=== PATIENT | male | born 1975 | race Caucasian/White ===

== ENCOUNTER 2021-07-24 13:02 | Outpatient (CLI) | payer BC, SELFPAY ==
--- NOTE | ~2021-07-24 | CT_ITS ---
EXAMINATION: CT abdomen pelvis wo con DATE: 07/24/2021 13:21 INDICATION: Kidney stone TECHNIQUE: Computed tomography (CT) of the abdomen and pelvis was performed without intravenous contr ast. Automated exposure control and iterative reconstruction technique were employed. Exam dose: 384 .38 mGy-cm total exam DLP. COMPARISON: None. FINDINGS: The lung bases are clear of infiltrate or consolidation. Normal heart size. No pericardial or pleural effusion. The liver, gallbladder, bile ducts are unremarkable. Splenic size is within normal limits. No pancrea tic mass lesion, calcification or ductal dilatation. The gallbladder is contracted. No bile duct dilatation. Normal morphology of the adrenal glands. No right renal mass lesion or right urinary tract calculus or hydroureteronephrosis. Approximately 10 x 13 cm left renal probable cyst; sonographic or contrast CT or MR confirmation is r ecommended. No other renal mass lesion is evident on this limited noncontrast examination. No urinary tract calcu umair or hydroureteronephrosis. Normal caliber of the abdominal aorta. No intraperitoneal or retroperitoneal or pelvic mass lesion or adenopathy or ascites. There is mild prostate enlargement and multiple prostate calcifications. Normal appendix. There is minimal colonic diverticulosis; no evidence of diverticulitis. No bowel obs truction or intraperitoneal free air is detected. No suspicious osteolytic or osteoblastic lesions. IMPRESSION: 10 x 13 cm cystic lesion of left kidney; this is a limited noncontrast examination. Cons ider further evaluation with left kidney ultrasound or CT with IV contrast or MRI examination to excl ude any possible cystic hypernephroma Small sliding hiatal hernia Normal appendix Minimal sigmoid diverticulosis Reviewed, dictated and finalized at [facility]. Reviewed, dictated and finalized at [facility]. IMPRESSION: 10 x 13 cm cystic lesion of left kidney; this is a limited noncont rast examination. Consider further evaluation with left kidney ultrasound or CT with IV contrast or MRI examination to exclude any possible cystic hypernephro ma Small sliding hiatal hernia Normal appendix Minimal sigmoid diverticulosis
== END 2021-07-24 13:03 | disposition home or self-care (01) ==
PROVIDERS: PCP Family Medicine; Visit Provider Urology
DX: N20.0 Calculus of kidney (principal); K44.9 Diaphragmatic hernia without obstruction or gangrene; N28.89 Other specified disorders of kidney and ureter
CPT/HCPCS: 74176

== ENCOUNTER 2021-11-26 13:29 | Outpatient (CLI) | payer BC, SELFPAY ==
--- NOTE | ~2021-11-26 | CT_ITS ---
EXAMINATION: CT abdomen pelvis wo con DATE: 11/26/2021 14:31 INDICATION: Nephrolithiasis, perinephric hematoma TECHNIQUE: Computed tomography (CT) of the abdomen and pelvis was performed without intravenous contr ast. The dose-length product (DLP) was 467.85 mGy-cm. Automated exposure control and iterative recons truction technique were employed. COMPARISON: 07/24/2021 FINDINGS: Minimal dependent atelectasis is present in the lung bases. The heart size is normal. The l iver, spleen, pancreas, gallbladder, and adrenal glands are normal. The right kidney is unremarkable. There is a stable 12.0 x 9.9 cm heterogeneous, cystic, subcapsular mass of the left kidney which exe rts mass effect on the left kidney. No stones are identified in the kidneys, ureters, or bladder. The re is no hydronephrosis or hydroureter. No pathologically enlarged abdominal or pelvic lymph nodes ar e identified. There is no free intraperitoneal gas or evidence of bowel obstruction. There is minimal diverticulosis of the sigmoid colon. There is a small area of edematous stranding of the perisigmoid fat adjacent to a diverticula. There is mild lumbar spondylosis. IMPRESSION: 1. Persistent mildly complex subcapsular mass of the left kidney, possible subcapsular hematoma. Woul d correlate with any available prior imaging. If none available, recommend MRI or CT without and with contrast or ultrasound. 2. Mild uncomplicated sigmoid diverticulitis. Reviewed, dictated and finalized at [facility]. IMPRESSION: 1. Persistent mildly complex subcapsular mass of the left kidney, possible subc apsular hematoma. Would correlate with any available prior imaging. If none gianna ilable, recommend MRI or CT without and with contrast or ultrasound. 2. Mild uncomplicated sigmoid diverticulitis.
== END 2021-11-26 13:30 | disposition home or self-care (01) ==
PROVIDERS: PCP Family Medicine; Visit Provider Urology
DX: N20.0 Calculus of kidney (principal); K57.30 Diverticulosis of large intestine without perforation or abscess without bleeding
CPT/HCPCS: 74176

== ENCOUNTER 2022-11-11 10:42 | Outpatient (CLI) | payer BC, SELFPAY ==
--- NOTE | ~2022-11-11 | US_ITS ---
EXAMINATION: US renal BI DATE: 11/11/2022 12:04 INDICATION: Stage III chronic kidney disease TECHNIQUE: Multiple ultrasound grayscale images of the kidneys were obtained. COMPARISON: None. FINDINGS: The right kidney measures 10.1 x 6.3 x 7.1 cm. The left kidney measures 10.5 x 4.2 x 5.1 cm. The kidn eys demonstrate normal echogenicity. There is a 9.0 x 5.6 x 5.7 cm mass with heterogeneous echogenici ty arising from the upper pole of the left kidney. There is no definitive internal vascular flow on c olor Doppler. There is no hydronephrosis in either kidney. No stones identified. The bladder is norm al with bilateral ureteral jets visualized. IMPRESSION: 1. 9.0 cm heterogeneous mass arising from the upper pole of the left kidney which appears relatively solid concerning for renal cell carcinoma. Recommend further evaluation with pre and postcontrast MR I or CT. Dr. Cowart discussed these findings with Dr. Dean at 11:00 AM. Reviewed, dictated and finalized at [facility]. IMPRESSION: 1. 9.0 cm heterogeneous mass arising from the upper pole of the left kidney wh ich appears relatively solid concerning for renal cell carcinoma. Recommend fur ther evaluation with pre and postcontrast MRI or CT. Dr. Cowart discussed the se findings with Dr. Dean at 11:00 AM.
== END 2022-11-11 10:43 | disposition home or self-care (01) ==
PROVIDERS: PCP Family Medicine; Visit Provider Internal Medicine Nephrology
DX: I12.9 Hypertensive chronic kidney disease with stage 1 through stage 4 chronic kidney disease, or unspecified chronic kidney disease (principal); N18.31 Chronic kidney disease, stage 3a
CPT/HCPCS: 76775

== ENCOUNTER 2022-11-11 12:05 | Outpatient (CLI) | payer BC, SELFPAY ==
[2022-11-11 13:29] LABS: Albumin Level 4.5 g/dL (3.5-5.1); Anion Gap 6 mmol/L (8-16); Blood Urea Nitrogen 27 mg/dL (9-20); Calcium 8.9 mg/dL (8.4-10.2); Carbon Dioxide 27 mmol/L (22-30); Chloride 104 mmol/L (98-107); Estimated Glomerular Filt Rate 47; Glucose 87 mg/dL (65-110); Phosphorus 3.4 mg/dL (2.5-4.5); Potassium 4.2 mmol/L (3.4-5.0); Sodium 137 mmol/L (137-145)
[2022-11-11 13:34] LABS: Creatinine Urine 14.3 mg/dL; Total Protein Urine Random 14 mg/dL; Ur Ttl Prot Creatinine Ratio 0.98 mg/mg (0-0.20)
[2022-11-11 13:41] LABS: Complement C3 89 mg/dL (88-165)
[2022-11-14 22:49] LABS: Albumin 4.3 g/dL (3.8-4.8); Alpha 1 Globulin 0.3 g/dL (0.2-0.3); Alpha 2 Globulin 0.7 g/dL (0.5-0.9); Beta 1 Globulin 0.4 g/dL (0.4-0.6); Gamma Globulin 0.6 g/dL (0.8-1.7); Interpretation Consistent with; Protein, Total 6.5 g/dL (6.1-8.1)
[2022-11-16 12:55] LABS: Anti Glomerular Basement Memb <1.0 AI (<1.0)
[2022-11-16 22:31] LABS: ANCA Screen Negative (Negative)
[2022-11-17 04:56] LABS: Anti Nuclear Antibody Pattern Nuclear, Speckled; Anti Nuclear Antibody Titer 1:40 (Negative)
[2022-11-17 14:16] LABS: Creatinine, Random Urine 17 mg/dL (20-320)
== END 2022-11-11 12:06 | disposition home or self-care (01) ==
PROVIDERS: PCP Family Medicine; Visit Provider Internal Medicine Nephrology
DX: I12.9 Hypertensive chronic kidney disease with stage 1 through stage 4 chronic kidney disease, or unspecified chronic kidney disease (principal); N18.31 Chronic kidney disease, stage 3a
CPT/HCPCS: 36415; 80069; 82570; 83520; 84155; 84156; 84165; 84166; 86036; 86038; 86039; 86160; 86225

== ENCOUNTER 2022-12-18 12:51 | Outpatient (CLI) | payer BC, SELFPAY ==
--- NOTE | ~2022-12-18 | MR_ITS ---
EXAMINATION: MR abdomen wo/w con DATE: 12/18/2022 13:48 INDICATION: Left renal mass TECHNIQUE: Magnetic resonance imaging (MRI) of the abdomen was performed without and with 19 mL Multi cristian intravenous contrast. Sequences included coronal T2-weighted SS-FSE, coronal and axial FS 2D-F IESTA, axial STIR FSE, axial T2-weighted SS-FSE, axial T2-weighted FS SS-FSE, axial diffusion-weighte d SE, axial dual-echo T1-weighted FSPGR, and axial and coronal T1-weighted LAVA. Postcontrast axial T 1-weighted LAVA images were obtained in a time course. Postcontrast coronal T1-weighted LAVA images w ere obtained. COMPARISON: Ultrasound dated 11/11/[address] dated 11/26/2021 FINDINGS: Heart size is normal. No pericardial or pleural effusion. Liver, gallbladder, spleen, pancreas, bilat eral adrenal glands and right kidney are normal. Mild to moderate left renal atrophy. Decrease in siz e of a now 7.6 x 4.7 x 6.2 cm subcapsular left perinephric hematoma along the lateral side of the kid rich which demonstrates heterogeneous T1 and T2 signal with no solid enhancing soft tissue component o r active hemorrhage on postcontrast imaging. This previously measured 13.7 x 10.9 x [address] date d 11/26/2021. The previously seen mass effect and distortion of the morphology of the left kidney has likely improved. The kidneys demonstrate symmetric enhancement with no evidence of secondary vascula r compromise to the left kidney resulting from the hematoma. Bowels are unremarkable. No pathological ly enlarged abdominal lymphadenopathy. Mild thoracic levocurvature and thoracolumbar dextrocurvature. Bone marrow signal is normal throughout. IMPRESSION: 1. Significant decrease in size of a now 7.6 x 4.7 x 6.2 cm chronic subcapsular left perinephric maryse ady. Reviewed, dictated and finalized at [facility]. RNED ITEM CLERK IMPRESSION: 1. Significant decrease in size of a now 7.6 x 4.7 x 6.2 cm chronic subcapsular left perinephric hematoma.
== END 2022-12-18 12:52 | disposition home or self-care (01) ==
PROVIDERS: PCP Family Medicine; Visit Provider Internal Medicine Nephrology
DX: N28.89 Other specified disorders of kidney and ureter (principal); N25.81 Secondary hyperparathyroidism of renal origin; E55.9 Vitamin D deficiency, unspecified; I12.9 Hypertensive chronic kidney disease with stage 1 through stage 4 chronic kidney disease, or unspecified chronic kidney disease; N18.31 Chronic kidney disease, stage 3a
CPT/HCPCS: 74183; A9577; J2704

== ENCOUNTER 2023-04-02 17:18 | Outpatient (CLI) | payer BC, SELFPAY ==
[2023-04-02 17:54] LABS: Albumin Level 4.4 g/dL (3.5-5.1); Anion Gap 9 mmol/L (8-16); Blood Urea Nitrogen 28 mg/dL (9-20); Calcium 8.9 mg/dL (8.4-10.2); Carbon Dioxide 26 mmol/L (22-30); Chloride 104 mmol/L (98-107); Estimated Glomerular Filt Rate 50; Glucose 96 mg/dL (65-110); Phosphorus 4.3 mg/dL (2.5-4.5); Potassium 3.8 mmol/L (3.4-5.0); Sodium 139 mmol/L (137-145)
[2023-04-02 18:10] LABS: Parathyroid Intact 65.7 pg/mL (7.5-53.5)
[2023-04-02 18:24] LABS: Creatinine Urine 72.9 mg/dL; Total Protein Urine Random 7 mg/dL
[2023-04-02 18:42] LABS: Vitamin D 25 Hydroxy 70.7 ng/mL
== END 2023-04-02 17:19 | disposition home or self-care (01) ==
LOC: ANHLAB 17:19
PROVIDERS: PCP Family Medicine; Visit Provider Internal Medicine Nephrology
DX: E55.9 Vitamin D deficiency, unspecified (principal); N25.81 Secondary hyperparathyroidism of renal origin; I12.9 Hypertensive chronic kidney disease with stage 1 through stage 4 chronic kidney disease, or unspecified chronic kidney disease; N18.31 Chronic kidney disease, stage 3a
CPT/HCPCS: 36415; 80069; 82306; 82570; 83970; 84156

== ENCOUNTER 2023-07-12 16:25 | Outpatient (CLI) | payer BC, SELFPAY ==
[2023-07-12 18:01] LABS: Albumin Level 4.4 g/dL (3.5-5.1); Anion Gap 6 mmol/L (4-12); Blood Urea Nitrogen 20 mg/dL (9-20); Calcium 8.9 mg/dL (8.4-10.2); Carbon Dioxide 27 mmol/L (22-30); Chloride 104 mmol/L (98-107); Estimated Glomerular Filt Rate 50; Glucose 91 mg/dL (65-110); Phosphorus 3.6 mg/dL (2.5-4.5); Sodium 137 mmol/L (137-145)
[2023-07-12 18:02] LABS: Creatinine Urine 32.3 mg/dL; Total Protein Urine Random 11 mg/dL; Ur Ttl Prot Creatinine Ratio 0.34 mg/mg (0-0.20)
== END 2023-07-12 16:26 | disposition home or self-care (01) ==
LOC: ANHLAB 16:26
PROVIDERS: PCP Family Medicine; Visit Provider Internal Medicine Nephrology
DX: I12.9 Hypertensive chronic kidney disease with stage 1 through stage 4 chronic kidney disease, or unspecified chronic kidney disease (principal); N18.31 Chronic kidney disease, stage 3a
CPT/HCPCS: 36415; 80069; 82570; 84156

== ENCOUNTER 2023-10-06 10:47 | Outpatient (CLI) | payer BC, SELFPAY ==
[2023-10-06 11:19] LABS: Add Urine Microscopic? NO; Appearance Urine Clear (Clear); Bilirubin Urine Negative (Negative); Blood Urine Negative (Negative); Color Urine Yellow (Yellow); Glucose Urine UA Negative (Negative); Ketones Urine Negative (Negative); Leukocyte Esterase Ur Negative LEU/UL (Negative); Nitrate Urine Negative (Negative); Protein Urine Negative (Negative); Urobilinogen Urine 0.2 mg/dL (<2.0); pH Urine 5.5 (5.0-9.0)
[2023-10-06 11:38] LABS: Alanine Aminotransferase 26 U/L (6-50); Albumin Level 4.3 g/dL (3.5-5.1); Alkaline Phosphatase 59 U/L (38-126); Anion Gap 10 mmol/L (4-12); Aspartate Amino Transferase 31 U/L (17-59); Bilirubin,Total 0.6 mg/dL (0.2-1.3); Blood Urea Nitrogen 24 mg/dL (9-20); Carbon Dioxide 27 mmol/L (22-30); Chloride 102 mmol/L (98-107); Cholesterol 149 mg/dL (0-200); Estimated Glomerular Filt Rate 46; Glucose 86 mg/dL (65-110); HDL Direct 41 mg/dL; Sodium 139 mmol/L (137-145); Triglycerides 117 mg/dL (<150)
[2023-10-06 11:39] LABS: Iron 104 ug/dL (49-181)
[2023-10-06 11:46] LABS: Basophils Absolute Auto 0.1 K/mm3 (0.0-0.1); Basophils Percent Auto 0.6 % (0.2-1.2); Eosinophils Absolute Auto 0.3 K/mm3 (0-0.3); Eosinophils Percent Auto 3.9 % (0-4.4); Hemoglobin 11.1 g/dL (14.0-18.0); Immature Granulocyte Absolute 0.02 K/mm3 (0.00-0.031); Immature Granulocyte Percent A 0.2 % (0-0.5); Lymphocytes Absolute Auto 1.91 K/mm3 (0.9-3.2); Lymphocytes Percent Auto 22.7 % (18.3-44.2); Mean Corpuscular Hemoglobin 19.2 pg (26-34); Mean Corpuscular Volume 64.1 fl (80-100); Mean Platelet Volume 9.2 fl (7.4-10.4); Monocytes Absolute Auto 0.6 K/mm3 (0.1-0.6); Monocytes Percent Auto 6.5 % (2.6-8.5); Neutrophils Absolute Auto 5.6 K/mm3 (1.3-6.7); Neutrophils Percent Auto 66.1 % (45.5-73.1); Platelet Count Result 519 k/mm3 (150-375); Red Blood Count 5.77 M/mm3 (4.6-6.20); White Blood Count 8.4 K/mm3 (4.5-10.0)
[2023-10-06 11:49] LABS: LDL Cholesterol Direct 78 mg/dL
[2023-10-06 11:56] LABS: Percent Iron Saturation 31 % (20-50)
[2023-10-06 12:07] LABS: Anisocytosis 1+; Hypochromasia 1+; Microcytosis 1+ (NORMAL); Ovalocytes 1+; Platelet Estimate Increased (Adequate); Schistocytes None Seen; Tear Drop Cells 1+
[2023-10-06 12:08] LABS: Prostate Specific Antigen 0.6 ng/mL (< OR = 4.0)
== END 2023-10-06 10:48 | disposition home or self-care (01) ==
LOC: ANHLAB 10:49
PROVIDERS: PCP Family Medicine; Visit Provider Family Medicine
DX: D56.3 Thalassemia minor (principal); I10 Essential (primary) hypertension; E78.2 Mixed hyperlipidemia; Z12.5 Encounter for screening for malignant neoplasm of prostate
CPT/HCPCS: 36415; 80053; 80061; 81003; 82728; 83540; 83550; 84153; 84443; 85025; G0103

== ENCOUNTER 2023-11-08 11:31 | Outpatient (CLI) | payer BC, SELFPAY ==
[2023-11-08 12:03] LABS: Albumin Level 4.3 g/dL (3.5-5.1); Anion Gap 9 mmol/L (4-12); Blood Urea Nitrogen 21 mg/dL (9-20); Calcium 9.2 mg/dL (8.4-10.2); Carbon Dioxide 25 mmol/L (22-30); Chloride 102 mmol/L (98-107); Estimated Glomerular Filt Rate 54; Glucose 89 mg/dL (65-110); Phosphorus 3.1 mg/dL (2.5-4.5); Potassium 4.2 mmol/L (3.4-5.0); Sodium 136 mmol/L (137-145)
[2023-11-08 12:03] LABS: Creatinine Urine 43.6 mg/dL; Total Protein Urine Random 8 mg/dL; Ur Ttl Prot Creatinine Ratio 0.18 mg/mg (0-0.20)
[2023-11-08 12:14] LABS: Parathyroid Intact 30.3 pg/mL (14.5-75.2)
[2023-11-08 12:32] LABS: Vitamin D 25 Hydroxy 68.2 ng/mL
[2023-11-12 18:59] LABS: Testosterone Free 57.5 pg/mL (35.0-155.0); Testosterone Total 395 ng/dL (250-1100)
== END 2023-11-08 11:32 | disposition home or self-care (01) ==
PROVIDERS: PCP Family Medicine; Referring Provider Family Medicine; Visit Provider Internal Medicine Nephrology
DX: E55.9 Vitamin D deficiency, unspecified (principal); E66.9 Obesity, unspecified; I12.9 Hypertensive chronic kidney disease with stage 1 through stage 4 chronic kidney disease, or unspecified chronic kidney disease; N18.31 Chronic kidney disease, stage 3a; N25.81 Secondary hyperparathyroidism of renal origin
CPT/HCPCS: 36415; 80069; 82306; 82570; 83970; 84156; 84402; 84403

== ENCOUNTER 2024-02-01 00:19 | Day surgery (SDC) | payer BC, SELFPAY ==
[2024-01-21 08:34] VITALS: BMI 35.4
--- NOTE | 2024-02-01 07:37 | P.PNAN_ITS ---
Anes - Initial Pre Proc Eval Procedure: Operation Date: 02/01/24 10:30 Proposed Procedures p Screening Colonoscopy - Per De La Garza MD Date/Time: 02/01/24 07:37 Surgeon: Per De La Garza MD Pre Op Diagnosis: screening malignant neoplasm colon Patient Data Age: 48 Gender: M Height: 1.75 m Weight: 108.9 kg Allergies Allergy/AdvReac Type Severity Reaction Status Date / Time No Known Allergies Allergy Verified 02/01/24 09:22 Home Medications ?Medication ?Instructions ?Recorded ?Confirmed ?Type irbesartan 300 mg tablet 300 mg PO DAILY #30 tabs 09/29/23 02/01/24 Rx Patient hx anesthesia problems: none Family hx anesthesia problems: none Results Review: All pre-operative results and documents have been reviewed as part of the pre- operative evaluation. ON LICENSE OF [facility] Past Medical History Medical History (Updated 11/13/23 @ 14:18 by Ignacio Lew MD) Colon cancer screening BMI 36.0-36.9,adult Acute non-recurrent maxillary sinusitis BMI 33.0-33.9,adult Renal mass, left (11/11/22) 9 cm heterogeneous mass upper pole of the left kidney on ultrasound on 11/11/2022. renal MRI on 12/18/2022 revealed no suspicious lesions with a resolving chronic subcapsular perinephric hematoma on the left currently at 7.6 x 4.7 x 6.2 cm. Renal insufficiency (~07/01/21) BUN 18, creatinine 1.45 with GFR 57 on 07/01/2021. BUN 23, creatinine 1.58 with GFR 54 on 09/01/2022. BMI 35.0-35.9,adult Obesity (BMI 30-39.9) Paresthesias in left hand Kidney stone on left side Treated with lithotripsy with subsequent subcapsular hematoma BMI 34.0-34.9,adult History of kidney stones Thalassemia minor WBC 9.1, hemoglobin 10.4, hematocrit 35.1, platelets 589 with MCV 60.4 With iron 58, 20% saturation, ferritin 151 on 07/01/2021. WBC 8.3, hemoglobin 11.9, hematocrit 40.5, platelets 722, MCV 64.9, iron 103 on 02/20/2017. Hemoglobin 11.1, platelets 515, MCV 64.1, iron 104 with 31% saturation and ferritin 81.1 on 10/06/2023. Pharyngitis (~02/11/21) Obesity (BMI 35.0-39.9 without comorbidity) Leukocytosis WBC normal at 8.4 on 10/06/2023. Essential (primary) hypertension Seasonal allergic rhinitis Fungal infection of toenail Encounter for prostate cancer screening PSA normal at 0.46 on 07/01/2021. PSA 0.6 on 10/06/2023. Encounter for wellness examination in adult Total testosterone 395 with free testosterone 57.5 on 11/08/2023. Surgical History Surgical History H/O shoulder surgery (~2016) History of tonsillectomy (~1991) Family History Family History Grandparent CHF (congestive heart failure) Grandparent Lung cancer Social History Social History Smoking status: Never smoker Alcohol intake: current Alcohol use details: Rarely beer Substance use: never Substance use type: does not use Do You Feel Safe in your Home?: Yes Lack of Transportation: No Lack of Food: Never True Current Housing: I Have Housing Concerned About Future Housing: No Difficulty Paying Gas/Electric Bills: No Difficulty Paying for Meds: No Currently Unemployed: No Education: Associate Degree Difficulty w/ Childcare or Family Care: No Living arrangements: with family Gender identity (if verbalized by the patient): Male Sexual Orientation (if Verbalized by the Patient): Straight or Heterosexual Spiritual care concerns: No Anes - Eval Final PreProcedure Day of Procedure 02/01/24 07:37 Patient weight: obese Heart: regular rate and rhythm Lungs: clear to auscultation Airway: Mallampati scale class II Neurological: alert and oriented Last oral intake: >/= 8 hours ASA classification: III Emergent: no Anesthetic plan: proceed Anesthesia type and monitoring: general GIVS and standard monitoring Results Review: All pre-operative results and documents have been reviewed as part of the pre- operative evaluation. Informed Consent: The patient's anesthetic plan and its attendant risks and benefits were discussed with the patient/family/POA. Questions were solicited and answers provided to the satisfaction of the patient/family/POA.
[2024-02-01 09:26] VITALS: BP 133/97; PULSE 80; RESP 18; TEMP 36.1; O2SAT 98
[2024-02-01] MEDS: LACTATED RINGERS 1,000 ML 150 ML IV CONT (09:33)
--- NOTE | 2024-02-01 09:49 | PM.HPGS ---
History of Present Illness History of Present Illness Consent: Risks, benefits, and alternatives have been discussed and questions answered. Patient agrees to proceed with procedure. Chief complaint: screening malignant neoplasm colon Narrative: João Marinelli is a 48 year old male here for first screening colonoscopy Review of Systems Review of Systems: All systems reviewed & are unremarkable except as noted in HPI and below PMFSH Past Medical History Medical History (Updated 11/13/23 @ 14:18 by Ignacio Lew MD) Colon cancer screening BMI 36.0-36.9,adult Acute non-recurrent maxillary sinusitis BMI 33.0-33.9,adult Renal mass, left (11/11/22) 9 cm heterogeneous mass upper pole of the left kidney on ultrasound on 11/11/2022. renal MRI on 12/18/2022 revealed no suspicious lesions with a resolving chronic subcapsular perinephric hematoma on the left currently at 7.6 x 4.7 x 6.2 cm. Renal insufficiency (~07/01/21) BUN 18, creatinine 1.45 with GFR 57 on 07/01/2021. BUN 23, creatinine 1.58 with GFR 54 on 09/01/2022. BMI 35.0-35.9,adult Obesity (BMI 30-39.9) Paresthesias in left hand Kidney stone on left side Treated with lithotripsy with subsequent subcapsular hematoma BMI 34.0-34.9,adult History of kidney stones Thalassemia minor WBC 9.1, hemoglobin 10.4, hematocrit 35.1, platelets 589 with MCV 60.4 With iron 58, 20% saturation, ferritin 151 on 07/01/2021. WBC 8.3, hemoglobin 11.9, hematocrit 40.5, platelets 722, MCV 64.9, iron 103 on 02/20/2017. Hemoglobin 11.1, platelets 515, MCV 64.1, iron 104 with 31% saturation and ferritin 81.1 on 10/06/2023. Pharyngitis (~02/11/21) Obesity (BMI 35.0-39.9 without comorbidity) Leukocytosis WBC normal at 8.4 on 10/06/2023. Essential (primary) hypertension Seasonal allergic rhinitis Fungal infection of toenail Encounter for prostate cancer screening PSA normal at 0.46 on 07/01/2021. PSA 0.6 on 10/06/2023. Encounter for wellness examination in adult Total testosterone 395 with free testosterone 57.5 on 11/08/2023. Surgical History Surgical History H/O shoulder surgery (~2016) History of tonsillectomy (~1991) Family History Family History Grandparent CHF (congestive heart failure) Grandparent Lung cancer Social History Social History Smoking status: Never smoker Alcohol intake: current Alcohol use details: Rarely beer Substance use: never Substance use type: does not use Do You Feel Safe in your Home?: Yes Lack of Transportation: No Lack of Food: Never True Current Housing: I Have Housing Concerned About Future Housing: No Difficulty Paying Gas/Electric Bills: No Difficulty Paying for Meds: No Currently Unemployed: No Education: Associate Degree Difficulty w/ Childcare or Family Care: No Living arrangements: with family Gender identity (if verbalized by the patient): Male Sexual Orientation (if Verbalized by the Patient): Straight or Heterosexual Spiritual care concerns: No Meds Home Medications and Allergies Home Medications ?Medication ?Instructions ?Recorded ?Confirmed ?Type irbesartan 300 mg tablet 300 mg PO DAILY #30 tabs 09/29/23 02/01/24 Rx Allergies Allergy/AdvReac Type Severity Reaction Status Date / Time No Known Allergies Allergy Verified 02/01/24 09:22 Vital Signs Vital Signs - 24 hr 02/01/24 09:26 Temperature 97 F L Pulse Rate 80 Respiratory Rate 18 Blood Pressure 133/97 H Pulse Oximetry 98 Oxygen Delivery Room Air Exam Const: General: comfortable and no acute distress HENMT: Face/Nose/Sinus: Normal nares present Eyes: General: appearance normal, both eyes and all related structures Neck: Neck: no JVD Resp: Auscultation: clear to auscultation bilaterally Cardio: Rate: regular rate Rhythm: regular rhythm GI: Inspection: non-distended GI Palp: Yes Soft to palpation Skin: General skin exam: normal color Neuro: General: gait normal Speech: normal speech Extrem: General: normal to inspection Psych: Mental Status: mental status grossly normal Assessment and Plan Assessment and plan (1) Colon cancer screening: Code(s): Z12.11 - Encounter for screening for malignant neoplasm of colon Status: Acute Assessment and Plan: colonoscopy
[2024-02-01 10:00] VITALS: BP 116/63; PULSE 66; RESP 20; O2SAT 97
[2024-02-01 10:10] VITALS: BP 117/61; PULSE 67; RESP 21; O2SAT 100
[2024-02-01 10:20] VITALS: BP 108/70; PULSE 61; RESP 19; O2SAT 100
--- OUTSIDE RECORDS SUMMARY | 2024-02-08 02:11 | XMS_ITS | Encounter Summary ---
Author Organization [facility] Address [address] [address] Care Team Providers Care Applied Technologist Name Role Phone Ignacio Lew MD Primary Care Provider [phone] Nino Lazaro MD Unavailable [phone] Reason for Visit * Reason Comments COVID-19 EVALUATION x3 days, fatigue, so re throat, altered taste and smell, body aches, chills. Encounter Details Date Type Department Care Team (Late st Contact Info) Description 02/17/2021 6:15 PM PAYROLL MASTER Office Visit [facility] [address] [address] Drake Gee, DONY [address] [place] [address] [address] [place] [address] COVID-19 (Primary Dx); Elevated blood pressure reading without diagnosis of hypertension Social History Tobacco Use Types Packs/Day Years Used Date Smoking Tobacco: Never Smokeless Tobacco: Never Sex and Gender Information Value Date Recorded Sex Assigned at Not on file Legal Sex Male 6:30 AM PAYROLL MASTER Gender Identity Male 07/28/2017 7:38 AM CDT Sexual Orientation Not on file documented as of this encounter Last Filed Vital Signs Vital Sign Reading Time Taken Comments Blood Pressure 133/99 02/17/2021 6:18 PM PAYROLL MASTER Pulse 93 02/17/2021 6:18 PM PAYROLL MASTER Temperature 36.6 ??C (97.9 ??F) 02/17/2021 6:18 PM CS T Respiratory Rate 16 02/17/2021 6:18 PM PAYROLL MASTER Oxygen Saturation 99% 02/17/2021 6:18 PM PAYROLL MASTER Inhaled Oxygen Concentration - - Weight 113.4 kg (250 lb) 02/17/2021 6:18 PM PAYROLL MASTER Height 175.3 cm (5' 9 ) 02/17/2021 6:18 PM PAYROLL MASTER Body Mass Index 36.92 02/17/2021 6:18 PM PAYROLL MASTER documented in this encounter Patient Instructions * Patient Instructions* Justyna Wei MA - 02/17/2021 6:15 PM PAYROLL MASTER Results for orders placed or performed in visit on 02/17/21 POC Influenza A/B, COVID-19 antigen Result Value Ref Range Inflenza A Ag, POC Negative Influenza B Ag, POC Negative COVID-19 Ag POC Positive (A) Presumptive Negative, Invalid While waiting for your COVID-19 test result or if your COVID-19 test is positive: ISOLATE: Stay home except to get medical care! Separate yourself from other people and pets in [facility]: ??? Do not go to work, school, or public areas, such as stores or social gatherings. ??? Do not use public transportation. ??? If available, stay in a separate bedroom and use a separate bathroom. ??? Ask others to care for your pets. (If possible) ??? Wear a facemask when around other people or pets. ??? Cover your mouth and nose with a tissue when you cough or sneeze. If a tissue is not available,cough or sneeze into your upper sleeve (not your hands). ??? Throw tissues away in trash-can that has a bag in it. Empty your trash daily. ??? Always wash your hands after you throw away the tissue or garbage. If you test Positive for COVID-19 Given what we currently know about COVID-19 and the Omicron variant, [facility] is shortening the recommended time for isolation from 10 days for people with COVID-19 to 5 days, if asymptomatic, followed by5 days of wearing a mask when around others. The change is motivated by science demonstrating that the majority of SARS-CoV-2 transmission occurs early in the course of illness, generally in the 1-2 days prior to onset of symptoms and the 2-3 days after. Therefore, people who test positive should isolate for 5 days and, if asymptomatic at that time, they may leave isolation if they can continue to mask for 5 days to minimize the risk of infecting others. Quarantine for those exposed to COVID-19 Additionally, [facility] is updating the recommended quarantine period for those exposed to COVID-19. For people who are unvaccinated or are more than six months out from their second mRNA dose (or more than 2 months after the J&J vaccine) and not yet boosted, CDC now recommends quarantine for 5 days followed by strict mask use for an additional 5 days. Alternatively, if a 5-day quarantine is not feasible, it is imperative that an exposed person wear a well-fitting mask at all times when around others for 10 days after exposure. Individuals who have received their booster shot do not need to quarantine following an exposure, but should wear a mask for 10 days after the exposure. For all those exposed, best practice would also include a test for SARS-CoV-2 at day 5 after exposure. If symptomsoccur, individuals should immediately quarantine until a negative test confirms symptoms are not attributable to COVID-19. Isolation relates to behavior after a confirmed infection. Isolation for 5 days followed by wearinga well-fitting mask will minimize the risk of spreading the virus to others. Quarantine refers to the time following exposure to the virus or close contact with someone known to have COVID-19. Both updates come as the Omicron variant continues to spread throughout the [place] and reflects the current science on when and for how long a person is maximally infectious. If You Were Exposed to Someone with COVID-19 (Quarantine) If you: Have been boosted OR Completed the primary series of Pfizer or Moderna vaccine within the last 6 months OR Completed the primary series of J&J vaccine within the last 2 months Wear a mask around others for 10 days. Test on day 5, if possible. If you develop symptoms get a test and stay home. If you: Completed the primary series of Pfizer or Moderna vaccine over 6 months ago and are not boosted OR Completed the primary series of J&J over 2 months ago and are not boosted OR Are unvaccinated Stay home for 5 days. After that continue to wear a mask around others for 5 additional days. If you can???t quarantine you must wear a mask for 10 days. Test on day 5 if possible. If you develop symptoms get a test and stay home If You Test Positive for COVID-19 (Isolate) Everyone, regardless of vaccination status. Stay home for 5 days. If you have no symptoms or your symptoms are resolving after 5 days, you can leave your house. Continue to wear a mask around others for 5 additional days. If you have a fever, continue to stay home until your fever resolves. Self-care: ??? Rest as much as possible. Slowly start to do more each day. ??? Take the medicines recommended by your doctor for fever, body aches, cough, or headaches. (Tylenol or Ibuprofen for aches/pains/fever as needed) (Antihistamines like Claritin or Benadryl as needed for drainage) (Delsym and cough drops/throat lozenges as needed for cough) ??? Drink more liquids as directed to help thin and loosen mucus so it is easier to cough up. Liquids such as water, fruit juice, and broth also help keep you hydrated. ??? Soothe a sore throat by gargling with warm salt water. Make salt water by dissolving ?? teaspoon salt in 1 cup warm water (8 ounces). Older children and adults can also use throat lozenges, ice chips, or sore throat spray. ??? Use a humidifier or vaporizer to increase air moisture in your home. This may make it easier tobreathe and help decrease coughing. ??? Use saline nasal drops as directed to relieve congestion. ??? Apply petroleum-based jelly around the outside of nostrils to decrease irritation from blowing your nose. ??? DO NOT smoke or vape. Nicotine and other chemicals in cigarettes and cigars can make your symptoms worse. Monitor your symptoms: ??? Seek medical attention right away if your symptoms get worse, such as if you are having difficulty breathing, shortness of breath, new confusion or inability to arouse, or bluish lips or face. ??? If you have a pulse ox monitor at home, monitor your oxygen saturations with this device. If you find your Oxygen Saturation is falling 92% or below please notify your PCP right away or seek medical attention. Or if you experience fever uncontrolled with antipyretics, shortness of breath, chestdiscomfort, uncontrolled n/v/d ??? If you have a medical emergency, call 911 and notify the EMS personnel that you have or are being evaluated for COVID-19. Put on a facemask before emergency medical services arrive -briefly discussed monoclonal antibody therapy, if you meet criteria, call your PCP for more information OLL MASTER OLL MASTER documented in this encounter Progress Notes * Drake Gee NP - 02/17/2021 6:15 PM CST Images from the original note were not included. Subjective/Objective Patient ID: João Marinelli is a 45 y.o. male. Chief Complaint COVID-19 EVALUATION (x3 days, fatigue, sore throat, altered taste and smell, body aches, chills.) URI Episode onset: 02/13/21. Associated symptoms include rhinorrhea and a sore throat. Pertinent negatives include no abdominal pain, chest pain, congestion, coughing, diarrhea, ear pain, headaches, nausea, neck pain, rash, shortness of breath, sinus pain, sneezing, vomiting or wheezing. Treatments tried: sudafed, mucinex. The treatment provided moderate relief. Review of Systems Constitutional: Positive for chills and fatigue. Negative for appetite change, diaphoresis and fever (99F max). HENT: Positive for rhinorrhea and sore throat. Negative for congestion, ear discharge, ear pain, postnasal drip, sinus pressure, sinus pain and sneezing. altered taste and smell Respiratory: Negative for cough, chest tightness, shortness of breath and wheezing. Cardiovascular: Negative for chest pain. Gastrointestinal: Negative for abdominal pain, diarrhea, nausea and vomiting. Musculoskeletal: Positive for myalgias. Negative for neck pain and neck stiffness. Skin: Negative for rash. Neurological: Negative for dizziness and headaches. Hematological: Negative for adenopathy. Physical Exam Vitals and nursing note reviewed. Exam conducted with a head of science present (pt's daughter, who is also being seen today). Constitutional: General: He is awake. He is not in acute distress. Appearance: Normal appearance. HENT: Head: Normocephalic and atraumatic. Right Ear: Tympanic membrane and ear canal normal. Left Ear: Tympanic membrane and ear canal normal. Nose: No congestion or rhinorrhea. Right Sinus: No maxillary sinus tenderness or frontal sinus tenderness. Left Sinus: No maxillary sinus tenderness or frontal sinus tenderness. Mouth/Throat: Lips: [place]. Mouth: Mucous membranes are moist. Tongue: Tongue does not deviate from midline. Pharynx: Uvula midline. Posterior oropharyngeal erythema present. No pharyngeal swelling, oropharyngeal exudate or uvula swelling. Tonsils: No tonsillar exudate or tonsillar abscesses. Eyes: General: Lids are normal. Pupils: Pupils are equal, round, and reactive to light. Cardiovascular: Rate and Rhythm: Normal rate and regular rhythm. Pulses: Normal pulses. Heart sounds: Normal heart sounds. Pulmonary: Effort: Pulmonary effort is normal. No respiratory distress. Breath sounds: Normal breath sounds. No decreased breath sounds, wheezing, rhonchi or rales. Comments: No cough noted on exam Musculoskeletal: Cervical back: Full passive range of motion without pain, normal range of motion and neck supple. Lymphadenopathy: Cervical: No cervical adenopathy. Skin: General: Skin is warm and dry. Neurological: Mental Status: He is alert and oriented to person, place, and time. Gait: Gait normal. Psychiatric: Behavior: Behavior is cooperative. Vitals: 02/17/21 1818 BP: 133/99 BP Location: Right arm Patient Position: Sitting Pulse: 93 Resp: 16 Temp: 36.6 ??C (97.9 ??F) SpO2: 99% Weight: 113.4 kg (250 lb) Height: 175.3 cm (5' 9 ) No exam data present Past Medical History: Diagnosis Date ??? Thrombocytosis 07/31/2017 Social History Socioeconomic History ??? Marital status: Tobacco Use ??? Smoking status: Never Smoker ??? Smokeless tobacco: Never Used Substance and Sexual Activity ??? Sexual activity: Defer Assessment/Plan Diagnoses and all orders for this visit: COVID-19 (Primary) - POC Influenza A/B, COVID-19 antigen - POCT rapid strep A Elevated blood pressure reading without diagnosis of hypertension follow up with PCP Recent Results (from the past 4 hour(s)) POC Influenza A/B, COVID-19 antigen Collection Time: 02/17/21 6:43 PM Result Value Ref Range Inflenza A Ag, POC Negative Influenza B Ag, POC Negative COVID-19 Ag POC Positive (A) Presumptive Negative, Invalid POCT rapid strep A Collection Time: 02/17/21 6:45 PM Result Value Ref Range Rapid Strep A, POC Negative Patient Education: While waiting for your COVID-19 test result or if your COVID-19 test is positive: ISOLATE: Stay home except to get medical care! Separate yourself from other people and pets in yourhome: ??? Do not go to work, school, or public areas, such as stores or social gatherings. ??? Do not use public transportation. ??? If available, stay in a separate bedroom and use a separate bathroom. ??? Ask others to care for your pets. (If possible) ??? Wear a facemask when around other people or pets. ??? Cover your mouth and nose with a tissue when you cough or sneeze. If a tissue is not available,cough or sneeze into your upper sleeve (not your hands). ??? Throw tissues away in trash-can that has a bag in it. Empty your trash daily. ??? Always wash your hands after you throw away the tissue or garbage. If you test Positive for COVID-19 Given what we currently know about COVID-19 and the Omicron variant, [facility] is shortening the recommended time for isolation from 10 days for people with COVID-19 to 5 days, if asymptomatic, followed by5 days of wearing a mask when around others. The change is motivated by science demonstrating that the majority of SARS-CoV-2 transmission occurs early in the course of illness, generally in the 1-2 days prior to onset of symptoms and the 2-3 days after. Therefore, people who test positive should isolate for 5 days and, if asymptomatic at that time, they may leave isolation if they can continue to mask for 5 days to minimize the risk of infecting others. Quarantine for those exposed to COVID-19 Additionally, [facility] is updating the recommended quarantine period for those exposed to COVID-19. For people who are unvaccinated or are more than six months out from their second mRNA dose (or more than 2 months after the J&J vaccine) and not yet boosted, CDC now recommends quarantine for 5 days followed by strict mask use for an additional 5 days. Alternatively, if a 5-day quarantine is not feasible, it is imperative that an exposed person wear a well-fitting mask at all times when around others for 10 days after exposure. Individuals who have received their booster shot do not need to quarantine following an exposure, but should wear a mask for 10 days after the exposure. For all those exposed, best practice would also include a test for SARS-CoV-2 at day 5 after exposure. If symptomsoccur, individuals should immediately quarantine until a negative test confirms symptoms are not attributable to COVID-19. Isolation relates to behavior after a confirmed infection. Isolation for 5 days followed by wearinga well-fitting mask will minimize the risk of spreading the virus to others. Quarantine refers to the time following exposure to the virus or close contact with someone known to have COVID-19. Both updates come as the Omicron variant continues to spread throughout the [place] and reflects the current science on when and for how long a person is maximally infectious. If You Were Exposed to Someone with COVID-19 (Quarantine) If you: Have been boosted OR Completed the primary series of Pfizer or Moderna vaccine within the last 6 months OR Completed the primary series of J&J vaccine within the last 2 months Wear a mask around others for 10 days. Test on day 5, if possible. If you develop symptoms get a test and stay home. If you: Completed the primary series of Pfizer or Moderna vaccine over 6 months ago and are not boosted OR Completed the primary series of J&J over 2 months ago and are not boosted OR Are unvaccinated Stay home for 5 days. After that continue to wear a mask around others for 5 additional days. If you can???t quarantine you must wear a mask for 10 days. Test on day 5 if possible. If you develop symptoms get a test and stay home If You Test Positive for COVID-19 (Isolate) Everyone, regardless of vaccination status. Stay home for 5 days. If you have no symptoms or your symptoms are resolving after 5 days, you can leave your house. Continue to wear a mask around others for 5 additional days. If you have a fever, continue to stay home until your fever resolves. Self-care: ??? Rest as much as possible. Slowly start to do more each day. ??? Take the medicines recommended by your doctor for fever, body aches, cough, or headaches. (Tylenol or Ibuprofen for aches/pains/fever as needed) (Antihistamines like Claritin or Benadryl as needed for drainage) (Delsym and cough drops/throat lozenges as needed for cough) ??? Drink more liquids as directed to help thin and loosen mucus so it is easier to cough up. Liquids such as water, fruit juice, and broth also help keep you hydrated. ??? Soothe a sore throat by gargling with warm salt water. Make salt water by dissolving ?? teaspoon salt in 1 cup warm water (8 ounces). Older children and adults can also use throat lozenges, ice chips, or sore throat spray. ??? Use a humidifier or vaporizer to increase air moisture in your home. This may make it easier tobreathe and help decrease coughing. ??? Use saline nasal drops as directed to relieve congestion. ??? Apply petroleum-based jelly around the outside of nostrils to decrease irritation from blowing your nose. ??? DO NOT smoke or vape. Nicotine and other chemicals in cigarettes and cigars can make your symptoms worse. Monitor your symptoms: ??? Seek medical attention right away if your symptoms get worse, such as if you are having difficulty breathing, shortness of breath, new confusion or inability to arouse, or bluish lips or face. ??? If you have a pulse ox monitor at home, monitor your oxygen saturations with this device. If you find your Oxygen Saturation is falling 92% or below please notify your PCP right away or seek medical attention. Or if you experience fever uncontrolled with antipyretics, shortness of breath, chestdiscomfort, uncontrolled n/v/d ??? If you have a medical emergency, call 911 and notify the EMS personnel that you have or are being evaluated for COVID-19. Put on a facemask before emergency medical services arrive -briefly discussed monoclonal antibody therapy, if you meet criteria, call your PCP for more information Disposition ??? Treatment plan including expectations, follow up, and return precautions discussed with patient/parent, verbalizes understanding. ??? Medication dosage, use, and potential adverse reactions discussed with patient/parent. ??? Advised to follow up with PCP if symptoms do not resolve as expected or sooner if condition worsens. ??? Signs/symptoms warranting ER evaluation reviewed. ??? Patient and/or guardian was given an opportunity to ask questions, questions answered. Drake Gee NP OLL MASTER documented in this encounter Plan of Treatment Not on file documented as of this encounter Procedures Procedure Name Priority Date/Time Associated Diagnosis Comments POCT RAPID STREP Routine 02/17/2021 6:45 PM PAYROLL MASTER COVID-19 POC INFLUENZA A/B, COVID-19 ANTIGEN Routine 02/17/2021 6:43 PM PAYROLL MASTER COVID-19 documented in this encounter Results * POCT rapid strep A (02/17/2021 6:45 PM PAYROLL MASTER) Rapid Strep A, POC Negative Swab 02/17/2021 6:45 PM PAYROLL MASTER Drake Gee PICK UP POINT OF CARE TEST ORDERABLES F inal Result * (ABNORMAL) POC Influenza A/B, COVID-19 antigen (02/17/2021 6:43 PM PAYROLL MASTER) Pathologist [facility] Influenza A Ag, POC Negative [facility] Influenza B Ag, POC Negative [facility] COVID-19 Ag POC Positive(A) Presumptive Negative, Invalid [facility] 02/17/2021 6:43 PM PAYROLL MASTER Drake Gee NP POINT OF CARE TEST ORDERABLES F inal Result [facility] [address] [place] [address] documented in this encounter Visit Diagnoses Diagnosis COVID-19- Primary Elevated blood pressure reading without diagnosis of hypertension documented in this encounter Additional Health Concerns Infection Onset Date Last Indicated Resolved Time COVID: Suspected 02/17/2021 02/17/2021 02/17/2021 6:44 PM PAYROLL MASTER COVID19 02/17/2021 02/17/2021 02/27/2021 3:06 AM PAYROLL MASTER documented as of this encounter Care Teams Applied Technologist Relationship Specialty Start Date End Date Ignacio Lew MD [address] [address] PCP - General 04/21/17 Nino Lazaro MD [address] [address] Medical Oncologist/Rn Gynecology Hematology and Oncology 07/27/17 documented as of this encounter
--- OUTSIDE RECORDS SUMMARY | 2024-02-08 02:11 | XMS_ITS | Clinical Summary ---
Author Organization [facility] Address [address] [place] [address] Care Team Providers Care Development Editor Name Role Phone Ignacio Lew MD Primary Care Provider [phone] Nino Lazaro MD Unavailable [phone] Allergies No known active allergies Medications cefdinir (OMNICEF) 300 mg capsule 9 Active aspirin 81 mg enteric coated tablet TAKE ONE TABLET DAILY 30 tablet 11 9 Active Additional Information Patient not taking.Reported on 02/17/2021 Active Problems Problem Noted Date Diagnosed Date Thalassemia 04/20/2017 Thrombocytosis 03/08/2017 Immunizations Name Administration Dates Next Due Influenza, Unspecified 04/21/2017 Medical History Medical History Date Comments Thrombocytosis 07/31/2017 Social History Tobacco Use Types Packs/Day Years Used Date Smoking Tobacco: Never Smokeless Tobacco: Never Personal Safety Answer Date Recorded Getting School Help Needed Not on file 04/03 Sex and Gender Information Value Date Recorded Sex Assigned at Not on file Legal Sex Male 6:30 AM MERCHANDISE DISTRIBUTOR Gender Identity Male 07/28/2017 7:38 AM CDT Sexual Orientation Not on file Obstetrics History Last Filed Vital Signs Vital Sign Reading Time Taken Comments Blood Pressure 133/99 02/17/2021 6:18 PM MERCHANDISE DISTRIBUTOR Pulse 93 02/17/2021 6:18 PM MERCHANDISE DISTRIBUTOR Temperature 36.6 ??C (97.9 ??F) 02/17/2021 6:18 PM CS T Respiratory Rate 16 02/17/2021 6:18 PM MERCHANDISE DISTRIBUTOR Oxygen Saturation 99% 02/17/2021 6:18 PM MERCHANDISE DISTRIBUTOR Inhaled Oxygen Concentration - - Weight 113.4 kg (250 lb) 02/17/2021 6:18 PM MERCHANDISE DISTRIBUTOR Height 175.3 cm (5' 9 ) 02/17/2021 6:18 PM MERCHANDISE DISTRIBUTOR Body Mass Index 36.92 02/17/2021 6:18 PM MERCHANDISE DISTRIBUTOR Plan of Treatment Health Maintenance Due Date Last Done Comments Colon Cancer Screening-Colonoscopy 1974 Depression Screening 1974 Hepatitis C Screening 1974 Pneumococcal vaccine <65 (1 of 2 - PCV) 1980 DTaP/Tdap/Td Vaccine (1 - Tdap) 1985 Hepatitis B Screening 1992 Regular Well Visit/Exam 18-64 1992 Influenza Vaccine (#1) 2023 04/21/2017 Insurance [employer] [place] Care Teams Development Editor Relationship Specialty Start Date End Date Ignacio Lew MD [address] [address] PCP - General 04/21/17 Nino Lazaro MD [address] [address] Medical Oncologist/First Beater Hematology and Oncology 07/27/17
--- OUTSIDE RECORDS SUMMARY | 2024-02-08 02:11 | XMS_ITS | Encounter Summary ---
Author Organization [facility] Address [address] [place] [facility] [address] [place] [address] Care Team Providers Care Home Specialist Name Role Phone Ignacio Lew MD Primary Care Provider + -[phone] Nino Lazaro MD Unavailable [phone] Encounter Details Date Type Department Care Team (Late st Contact Info) Description 02/19/2021 Orders Only [facility] Accountable Care Organization [address] [place] [address] Justyna Lomax RN [address] [place] [address] [address] [facility] [address] [place] [address] Social History Tobacco Use Types Packs/Day Years Used Date Smoking Tobacco: Never Smokeless Tobacco: Never Sex and Gender Information Value Date Recorded Sex Assigned at Not on file Legal Sex Male 6:30 AM SOFTBALL UMPIRE Gender Identity Male 07/28/2017 7:38 AM CDT Sexual Orientation Not on file documented as of this encounter Plan of Treatment Not on file documented as of this encounter Visit Diagnoses Not on filedocumented in this encounter Additional Health Concerns Infection Onset Date Last Indicated Resolved Time COVID19 02/17/2021 02/17/2021 02/27/2021 3:06 AM SOFTBALL UMPIRE documented as of this encounter Care Teams Home Specialist Relationship Specialty Start Date End Date Ignacio Lew MD [address] [facility] [address] [place] [address] PCP - General 04/21/17 Nino Lazaro MD [address] [address] Medical Oncologist/Highway Engineering Technician Hematology and Oncology 07/27/17 documented as of this encounter
--- OUTSIDE RECORDS SUMMARY | 2024-02-08 02:11 | XMS_ITS | Referral Summary ---
Author Organization [facility] Address [address] [place] [address] Care Team Providers Care Electrician Marine Name Role Phone Ignacio Lew MD Primary Care Provider [phone] Nino Lazaro MD Unavailable [phone] Allergies No known active allergies Medications cefdinir (OMNICEF) 300 mg capsule 9 Active aspirin 81 mg enteric coated tablet TAKE ONE TABLET DAILY 30 tablet 11 9 Active Additional Information Patient not taking.Reported on 02/17/2021 Active Problems Problem Noted Date Diagnosed Date Thalassemia 04/20/2017 Thrombocytosis 03/08/2017 Immunizations Name Administration Dates Next Due Influenza, Unspecified 04/21/2017 Social History Tobacco Use Types Packs/Day Years Used Date Smoking Tobacco: Never Smokeless Tobacco: Never Personal Safety Answer Date Recorded Getting School Help Needed Not on file 04/03 Sex and Gender Information Value Date Recorded Sex Assigned at Not on file Legal Sex Male 6:30 AM CASEWORKER INTAKE Gender Identity Male 07/28/2017 7:38 AM CDT Sexual Orientation Not on file Last Filed Vital Signs Vital Sign Reading Time Taken Comments Blood Pressure 133/99 02/17/2021 6:18 PM CASEWORKER INTAKE Pulse 93 02/17/2021 6:18 PM CASEWORKER INTAKE Temperature 36.6 ??C (97.9 ??F) 02/17/2021 6:18 PM CS T Respiratory Rate 16 02/17/2021 6:18 PM CASEWORKER INTAKE Oxygen Saturation 99% 02/17/2021 6:18 PM CASEWORKER INTAKE Inhaled Oxygen Concentration - - Weight 113.4 kg (250 lb) 02/17/2021 6:18 PM CASEWORKER INTAKE Height 175.3 cm (5' 9 ) 02/17/2021 6:18 PM CASEWORKER INTAKE Body Mass Index 36.92 02/17/2021 6:18 PM CASEWORKER INTAKE Plan of Treatment Not on file Insurance [employer] [facility] [employer] [place] Care Teams Electrician Marine Relationship Specialty Start Date End Date Ignacio Lew MD [address] [address] PCP - General 04/21/17 Nino Lazaro MD [address] [employer] [address] Medical Oncologist/Grinder Set Up Operator Hematology and Oncology 07/27/17
--- OUTSIDE RECORDS SUMMARY | 2024-02-08 02:11 | XMS_ITS | Encounter Summary ---
Author Organization [facility] Address [address] [address] Care Team Providers Care Paint Preparer Name Role Phone Ignacio Lew MD Primary Care Provider [phone] Nino Lazaro MD Unavailable [phone] Reason for Visit * Reason Comments covid swab for event Encounter Details Date Type Department Care Team (Latest Contact Info) Description 01/13/2021 7:00 PM CAPTAIN FISHING VESSEL Clinical Support [facility] Outpatient Center [address] [id number] Encounter for screening for COVID-19 (Primary Dx) Social History Tobacco Use Types Packs/Day Years Used Date Smoking Tobacco: Never Smokeless Tobacco: Never Sex and Gender Information Value Date Recorded Sex Assigned at Not on file Legal Sex Male 6:30 AM CAPTAIN FISHING VESSEL Gender Identity Male 07/28/2017 7:38 AM CDT Sexual Orientation Not on file documented as of this encounter Progress Notes * Corrina Tim MA - 01/13/2021 7:00 PM CST Patient presents to clinic requesting COVID swab for event Denies the following: GI symptoms: nausea, vomiting, diarrhea, abdominal pain Respiratory symptoms: shortness of breath, chest discomfort, cough, rhinorrhea, congestion, sore throat Generalized symptoms of infection: fever, excessive fatigue, generalized malaise, headache, ear ache Verbalizes understanding that if symptoms develop, patient should return to clinic for further workup and/or treatment of symptoms. AIN FISHING VESSEL documented in this encounter Plan of Treatment Not on file documented as of this encounter Procedures Procedure Name Priority Date/Time Associated Diagnosis Comments COVID-19 POC Routine 01/13/2021 7:23 PM CAPTAIN FISHING VESSEL Encounter for screening for COVID-19 documented in this encounter Results * COVID-19 POC (01/13/2021 7:23 PM CAPTAIN FISHING VESSEL) COVID-19 Ag POC (BD Veritor) Presumptive Negative Presumptive Negative, Invalid [facility] Nasal 01/13/2021 7:23 PM CAPTAIN FISHING VESSEL Drake Gee CAUSTIC CRESYLATE SHIFT SUPERINTENDENT POINT OF CARE TEST ORDERABLES F inal Result [facility] EDW [facility] [address] documented in this encounter Visit Diagnoses Diagnosis Encounter for screening for COVID-19- Primary documented in this encounter Care Teams Paint Preparer Relationship Specialty Start Date End Date Ignacio Lew MD [address] [employer] [address] PCP - General 04/21/17 Nino Lazaro MD [address] [employer] [address] Medical Oncologist/Container Finishing Inspector Hematology and Oncology 07/27/17 documented as of this encounter
--- OUTSIDE RECORDS SUMMARY | 2024-02-08 02:11 | XMS_ITS | Clinical Summary ---
Author Organization [facility] Address [address] [place] [address]. [place] [id number] [place] [address] Care Team Providers Care Enterprise Application Developer Name Role Phone Unavailable Primary Care Provider Unavailabl e Social History Tobacco Use Types Packs/Day Years Used Date Smoking Tobacco: Never Assessed Sex and Gender Information Value Date Recorded Sex Assigned at Not on file Legal Sex Male 10:23 PM DIRECTOR DATA PROCESSING Gender Identity Not on file Sexual Orientation Not on file Plan of Treatment Health Maintenance Due Date Last Done Comments Colorectal Cancer Screening Colonoscopy (10 Years) 1974 Annual Physical 1977 Hepatitis C 1992 DTaP, Tdap and Td Vaccines ( 1 - Tdap) 1993 Hepatitis B Vaccines (1 of 3 - 19+ 3-dose series) 1993 COVID-19 Vaccine (2023-2 5 season) 2023 Influenza Adult (#1) 2023 Meningococcal Vaccine Aged Out No bessie grisel eligible based on patient's age to complete this topic Pneumococcal Vaccine: Pediat rics (0 to 5 Years) and At-Risk Patients (6 to 64 Years) Aged Out No longer eligible b ased on patient's age to complete this topic RSV Immunizations Under 20 Months Aged Out No longer eligible based on patient's age to complete this topic
--- OUTSIDE RECORDS SUMMARY | 2024-02-08 02:11 | XMS_ITS | Encounter Summary ---
Author Organization [facility] Address [address] [place] [address]. [place], [place] [address] [place] [address] Care Team Providers Care Bellhop Captain Name Role Phone Unavailable Primary Care Provider Unavailkris e Encounter Details Date Type Department Care Team (Late st Contact Info) Description 03/16/2017 Abstract [facility] [address] [place], [place] [id number] Kai Greco, [facility] [address] [address] Social History Tobacco Use Types Packs/Day Years Used Date Smoking Tobacco: Never Assessed Sex and Gender Information Value Date Recorded Sex Assigned at Not on file Legal Sex Male 10:23 PM PELTS SKINNER Gender Identity Not on file Sexual Orientation Not on file documented as of this encounter Plan of Treatment Not on file documented as of this encounter Visit Diagnoses Diagnosis Pain of right foot Pain in limb documented in this encounter
--- OUTSIDE RECORDS SUMMARY | 2024-02-08 02:11 | XMS_ITS | Encounter Summary ---
Author Organization [facility] Care Team Providers Care Furnace Feeder Name Role Phone Ignacio Lew MD Primary Care Provider [phone] Nino Lazaro MD Unavailable [phone] Encounter Details Date Type Department Care Team (Latest Contact Info) Description 09/08/2018 Travel Social History Tobacco Use Types Packs/Day Years Used Date Smoking Tobacco: Never Smokeless Tobacco: Never Sex and Gender Information Value Date Recorded Sex Assigned at Not on file Legal Sex Male 6:30 AM LOAN BROKER Gender Identity Male 07/28/2017 7:38 AM CDT Sexual Orientation Not on file documented as of this encounter Plan of Treatment Not on file documented as of this encounter Visit Diagnoses Not on filedocumented in this encounter Care Teams Furnace Feeder Relationship Specialty Start Date End Date Ignacio Lew MD [address] [address] PCP - General 04/21/17 Nino Lazaro MD [address] [id number] Medical Oncologist/Senior Systems Analyst Hematology and Oncology 07/27/17 documented as of this encounter
--- OUTSIDE RECORDS SUMMARY | 2024-02-08 02:11 | XMS_ITS | Encounter Summary ---
Author Organization [facility] Address [address] [place] [address] Phone Care Team Providers Care Quality Worker Name Role Phone Ignacio Lew MD Primary Care Provider [phone] Nino Lazaro MD Unavailable [phone] Reason for Visit * Reason Comments Follow-up Thalassemia, unspecified type * Oncology (Routine) - Closed Specialty Diagnoses / Procedures Referred By Contac t Referred To Contact Hematology and Oncology / Oncology Diagnoses Thalassemia, unspecified type CBC 6 mo FU Thalassemia Procedures ONCBCN CLINIC APPOINTMENT REQUEST RETURN Nino Lazaro MD [address] [place] [address] [address] [place], [place] [address], [place] [address] Phone: tel: fax: Nino Lazaro MD [address] [place] [address] [address] [place] [address] Phone: tel: fax: Referral ID Status Reason Start Date Expiration Date Visits Re quested Visits Authorized [id number] Closed 02/18/2018 02/07/2019 99 99 Encounter Details Date Type Department Care Team (Late st Contact Info) Description 09/08/2018 10:15 AM CDT Office Visit [facility] [address] [place] [id number] Nino Lazaro MD [address] [place] [address] [place] [address] Thrombocytosis (CMS/HCC) (Primary Dx); Thalassemia, unspecified type Social History Tobacco Use Types Packs/Day Years Used Date Smoking Tobacco: Never Smokeless Tobacco: Never Sex and Gender Information Value Date Recorded Sex Assigned at Not on file Legal Sex Male 6:30 AM ROUTE SALES DELIVERY DRIVERS SUPERVISOR Gender Identity Male 07/28/2017 7:38 AM CDT Sexual Orientation Not on file documented as of this encounter Last Filed Vital Signs Vital Sign Reading Time Taken Comments Blood Pressure 131/89 09/08/2018 10:25 AM CDT Pulse 82 09/08/2018 10:25 AM CDT Temperature 36.9 ??C (98.4 ??F) 09/08/2018 1 0:25 AM CDT Respiratory Rate 16 09/08/2018 10:2 5 AM CDT Oxygen Saturation 96% 09/08/2018 10: 25 AM CDT Inhaled Oxygen Concentration - - Weight 109.7 kg (241 lb 12.8 oz) 2018 10:25 AM CDT Height 172.7 cm (5' 7.99 ) 09/08/2018 1 0:25 AM CDT Body Mass Index 36.77 09/08/2018 10:25 AM CDT documented in this encounter Progress Notes * Nino Lazaro MD - 09/08/2018 10:15 AM CDT Medical Oncology / Hematoloy Clinic Note Visit Date: 09/08/2018 Primary Care Physician: Ignacio Lew MD João Pool 42 y.o. male Chief Complaint: The patient was referred for my opinion recommendations regarding further evaluation and managementof his thalassemia. HPI: 09/08/2018--. The patient returns today for reassessment and further recommendations regarding further evaluation and management of his thalassemia with no new complaints. Assessment: 1. History of mild anemia with a CBC parameters supporting thalassemia minor (trait). 2. Thrombocytosis etiology uncertain. 3. Thalassemia minor is not usually associated with thrombocytosis. I don't believe that I have ever seen that --certainly not to this degree., 4. At his his age I think we need to be careful to not overlook the possibility of essential thrombocytosis or other myeloproliferative disorder., 5. However fortunately his NAIMA 2 gene analysis is negative. 6. He does not appear to have any acute inflammatory state such that his platelet count should be this high. 7. His history, physical exam laboratory studies did not indicate any occult malignancy. Plan: 1. I told the patient that I did not think that he had any serious pathology causing his mild- moderate elevation in platelet count which seems to be stable. 2. It would seem most likely that this would be a reactive process rather than an independent myeloproliferative disorder. 3. If he develops significant leukocytosis, he would need a PCR for BCR-ABL gene test or bone marrow exam. 4. I told him for now would be reasonable for him to take 1 aspirin (80 mg) daily. 5. I will see him again in 12 months unless some other development occurs. --09/08/2018; Patient Active Problem List Diagnosis ??? Thalassemia ??? Thrombocytosis ([facility]) Hematology History: The patient is a 41-year-old white male, [employer] prec[employer] who was seen by his primary care physician for his annual physical exam recently. 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 He is said tohave microcytosis and target cells on The peripheral smear. This testosterone level was 336. His TSH was normal. On 03/08/17. His hemoglobin was 11.9 with a normal serum iron of 103 and a normal B12 at 8 81,000, normal folic acid. He did have mild thrombocytosis at 722,000. It should be mentioned that his MCV was said siena 64.9. On his most recent visit to his primary care physician he did have sinusitis which was treated with Omnicef. I don't have any other laboratory studies on this patient at this time. 06/02/17--He was referred to me on 04/21/17 with a history of thalassemia minor and new development of thrombocytosis. His PBS is said to have microcytosis and target cells on the peripheral smear. This testosterone level was 336. His TSH was normal. On 03/08/17. His hemoglobin was 11.9 with a normal serum iron of 103 and a normal B12 at 8 81,000, normal folic acid. He did have mild thrombocytosis at 722,000. It should be mentioned that his MCV was said to be 64.9. On his most recent visit to his primary care physician he did have sinusitis which was treated with Omnicef. I ordered a NAIMA 2 gene analysis on his initial visit as well as a repeat CBC. The NAIMA 2 gene analysis was negative. His CBC was consistent with some form of thalassemia. His platelet count is elevated but less so than on his referring laboratory studies. 03/10/2018--The patient returns today for reassessment and further recommendations regarding furtherevaluation and management of his thrombocytosis with no new complaints. Review of Systems: Review of Systems Constitutional: Negative for appetite change, chills, diaphoresis, fatigue, fever, unexpected weight change, malaise, weight change, no recent illnesses and in good health. HENT: Negative for hearing loss, lump/mass, mouth sores, nosebleeds, sore throat, tinnitus, troubleswallowing, voice change, dry mouth, difficulty hearing and wearing hearing aids. Eyes: Negative for eye problems, icterus, change in vision, dry eyes and cataracts. Respiratory: Negative for chest tightness, cough, hemoptysis, shortness of breath and wheezing. Cardiovascular: Negative for chest pain, leg swelling, palpitations, activity intolerance, shortness of breath, peripheral swelling and difficulty with ADL. Gastrointestinal: Negative for abdominal distention, abdominal pain, blood in stool, constipation, diarrhea, nausea, rectal pain and vomiting. Endocrine: Negative for hot flashes. Genitourinary: Negative for bladder incontinence, difficulty urinating, dyspareunia, dysuria, frequency, hematuria and nocturia. Musculoskeletal: Negative for arthralgias, back pain, flank pain, gait problem, myalgias, neck pain, neck stiffness and pain. Skin: Negative for itching, rash, wound, dryness and alopecia. Neurological: Negative for dizziness, extremity weakness, gait problem, headaches, light-headedness, numbness, seizures, speech difficulty and peripheral neuropathy. Hematological: Negative for adenopathy. Does not bruise/bleed easily. Psychiatric/Behavioral: Negative for confusion, decreased concentration, depression, sleep disturbance and suicidal ideas. The patient is not nervous/anxious. Objective Vitals BP 131/89 (BP Location: Right arm) Pulse 82 Temp 36.9 ??C (98.4 ??F) (Oral) Resp 16 Ht 172.7 cm (5' 7.99 ) Wt 109.7 kg (241 lb 12.8 oz) SpO2 96% BMI 36.77 kg/m?? Physical Exam Constitutional: He is oriented to person, place, and time. He appears well- developed and well-nourished. No distress. HENT: Head: Normocephalic and atraumatic. Right Ear: External ear normal. Left Ear: External ear normal. Nose: Nose normal. Mouth/Throat: Oropharynx is clear and moist. Eyes: Pupils are equal, round, and reactive to light. Conjunctivae and EOM are normal. No scleral icterus. Neck: Normal range of motion. Neck supple. No JVD present. No tracheal deviation present. No thyromegaly present. Cardiovascular: Normal rate, regular rhythm and normal heart sounds. Exam reveals no gallop and no friction rub. No murmur heard. Pulmonary/Chest: Effort normal and breath sounds normal. No respiratory distress. He has no wheezes. He has no rales. He exhibits no tenderness. Abdominal: Soft. Bowel sounds are normal. He exhibits no distension and no mass. There is no tenderness. There is no guarding. Musculoskeletal: Normal range of motion. He exhibits no edema. Lymphadenopathy: He has no cervical adenopathy. Neurological: He is alert and oriented to person, place, and time. He displays normal reflexes. No cranial nerve deficit or sensory deficit. He exhibits normal muscle tone. Coordination normal. Skin: Skin is warm and dry. No rash noted. He is not diaphoretic. No erythema. No pallor. Psychiatric: He has a normal mood and affect. His behavior is normal. Judgment and thought content normal. Vitals reviewed. Lab/Radiology/Diagnostic Review: Recent Results (from the past 336 hour(s)) CBC with auto differential Collection Time: 09/08/18 10:21 AM Result Value Ref Range WBC 9.4 3.4 - 10.8 x10E3/uL RBC 6.00 (H) 4.14 - 5.80 x10E6/uL Hgb 11.8 (L) 13.0 - 17.7 g/dL Hct 36.3 (L) 37.5 - 51.0 % MCV 61 (L) 79 - 97 fL MCH 19.7 (L) 26.6 - 33.0 pg MCHC 32.5 31.5 - 35.7 g/dL Rdw 19.3 (H) 12.3 - 15.4 % Platelets 638 (H) 150 - 450 x10E3/uL Neutrophils 59 Not Estab. % Lymphs 30 Not Estab. % Monocytes 8 Not Estab. % Eosinophils 3 Not Estab. % Basophil pct 0 Not Estab. % Neutrophil abs 5.5 1.4 - 7.0 x10E3/uL Lymphs (Absolute) 2.9 0.7 - 3.1 x10E3/uL Monocyte abs 0.7 0.1 - 0.9 x10E3/uL Eosinophils, abs 0.3 0.0 - 0.4 x10E3/uL Basophils, abs 0.0 0.0 - 0.2 x10E3/uL No results found. documented in this encounter Plan of Treatment Scheduled Orders Name Type Priority Associated Diagnoses Orde r Schedule CBC with auto differential Lab Routine Thrombocytosis (CMS/HCC) Thalassemia, unspecified type Expected: 09/11/2019 (Approximate) documented as of this encounter Visit Diagnoses Diagnosis Thrombocytosis- Primary Essential thrombocythemia Thalassemia, unspecified type documented in this encounter Orders Appointment Requests Count Last Ordered Date Fi rst Ordered Date ONCBCN CLINIC APPOINTMENT REQUEST 1 019 documented in this encounter Care Teams Quality Worker Relationship Specialty Start Date End Date Ignacio Lew MD [address] [address] PCP - General 04/21/17 Nino Lazaro MD [address] [address] Medical Oncologist/Rag Sorter And Cutter Hematology and Oncology 07/27/17 documented as of this encounter
--- OUTSIDE RECORDS SUMMARY | 2024-02-08 02:11 | XMS_ITS | Encounter Summary ---
Author Organization [facility] Address [address] [facility] [address] [place] [address] Care Team Providers Care Sock Ironer Name Role Phone Ignacio Lew MD Primary Care Provider + [phone] Nino Lazaro MD Unavailable [phone] Encounter Details Date Type Department Care Team (Late st Contact Info) Description 02/27/2021 Orders Only [facility] Accountable Care Organization [address] [place] [address] Justyna Lomax RN [address] [place] [address] [address] [facility] [address] [place] [address] Social History Tobacco Use Types Packs/Day Years Used Date Smoking Tobacco: Never Smokeless Tobacco: Never Sex and Gender Information Value Date Recorded Sex Assigned at Not on file Legal Sex Male 6:30 AM ADVERTISING EDITOR Gender Identity Male 07/28/2017 7:38 AM CDT Sexual Orientation Not on file documented as of this encounter Plan of Treatment Not on file documented as of this encounter Visit Diagnoses Not on filedocumented in this encounter Additional Health Concerns Infection Onset Date Last Indicated Resolved Time COVID19 02/17/2021 02/17/2021 02/27/2021 3:06 AM ADVERTISING EDITOR documented as of this encounter Care Teams Sock Ironer Relationship Specialty Start Date End Date Ignacio Lew MD [address] [facility] [address] [place] [address] PCP - General 04/21/17 Nino Lazaro MD [address] [address] Medical Oncologist/Process Controller Hematology and Oncology 07/27/17 documented as of this encounter
--- OUTSIDE RECORDS SUMMARY | 2024-02-08 02:11 | XMS_ITS | Encounter Summary ---
Author Organization [facility] Address [address] [place] [address] Phone Care Team Providers Care Roll Builder Name Role Phone Ignacio Lew MD Primary Care Provider [phone] Nino Lazaro MD Unavailable [phone] Encounter Details Date Type Department Care Team (Late st Contact Info) Description 09/08/2018 9:45 AM CDT Lab [facility] [address] [place] [id number] Thalassemia, unspecified type Social History Tobacco Use Types Packs/Day Years Used Date Smoking Tobacco: Never Smokeless Tobacco: Never Sex and Gender Information Value Date Recorded Sex Assigned at Not on file Legal Sex Male 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 Gender Identity Male 07/28/2017 7:38 AM CDT Sexual Orientation Not on file documented as of this encounter Plan of Treatment Scheduled Orders Name Type Priority Associated Diagnoses Orde r Schedule CBC with auto differential Lab Routine Thalassemia, unspecified type Expected: 09/08/2018, Expires: 09/09/2019 documented as of this encounter Visit Diagnoses Diagnosis Thalassemia, unspecified type documented in this encounter Orders Appointment Requests Count Last Ordered Date Fi rst Ordered Date ONCBCN LAB APPOINTMENT 1 09/08/2018 documented in this encounter Care Teams Roll Builder Relationship Specialty Start Date End Date Ignacio Lew MD [address] [address] PCP - General 3/14/18 Nino Lazaro MD [address] [place] [address] Medical Oncologist/Implementation Specialist Payroll Hematology and Oncology 07/27/17 documented as of this encounter
--- OUTSIDE RECORDS SUMMARY | 2024-02-08 02:12 | XMS_ITS | Encounter Summary ---
Author Organization [facility] Address [address] [place] [address] Phone Care Team Providers Care Director Talent Management Name Role Phone Ignacio Lew MD Primary Care Provider [phone] Nino Lazaro MD Unavailable [phone] Reason for Visit * Reason Comments Follow-up * Oncology (Routine) - Closed Specialty Diagnoses / Procedures Referred By Contmaikel t Referred To Contact Hematology and Oncology / Oncology Diagnoses Thalassemia, unspecified type CBC 6 mo FU Thalassemia Procedures ONCBCN CLINIC APPOINTMENT REQUEST RETURN Nino Lazaro MD [address] [place] [address] [address] [place] [address] Phone: tel: fax: Nino Lazaro MD [address] [place] [address] [address] [place] [address] Phone: tel: fax: Referral ID Status Reason Start Date Expiration Date Visits Re quested Visits Authorized [id number] Closed 02/18/2018 02/07/2019 99 99 Encounter Details Date Type Department Care Team (Late st Contact Info) Description 03/10/2018 9:00 AM LIFE SCIENCE TECHNICIAN Office Visit [facility] Oncology [address] [facility] [place] [address] Nino Lazaro MD [address] [place] [address] [place] [address] Thalassemia, unspecified type (Primary Dx) Social History Tobacco Use Types Packs/Day Years Used Date Smoking Tobacco: Never Smokeless Tobacco: Never Sex and Gender Information Value Date Recorded Sex Assigned at Not on file Legal Sex Male 6:30 AM LIFE SCIENCE TECHNICIAN Gender Identity Male 07/28/2017 7:38 AM CDT Sexual Orientation Not on file documented as of this encounter Last Filed Vital Signs Vital Sign Reading Time Taken Comments Blood Pressure 140/85 03/10/2018 10:14 AM LIFE SCIENCE TECHNICIAN Pulse 73 03/10/2018 10:14 AM LIFE SCIENCE TECHNICIAN Temperature 36.9 ??C (98.5 ??F) 03/10/2018 10:[address] Respiratory Rate 18 03/10/2018 10:14 AM LIFE SCIENCE TECHNICIAN Oxygen Saturation 99% 03/10/2018 10:14 AM LIFE SCIENCE TECHNICIAN Inhaled Oxygen Concentration - - Weight 109.8 kg (242 lb) 03/10/2018 10:14 AM LIFE SCIENCE TECHNICIAN Height 172.7 cm (5' 8 ) 03/10/2018 10:14 AM LIFE SCIENCE TECHNICIAN Body Mass Index 36.8 03/10/2018 10:14 AM LIFE SCIENCE TECHNICIAN documented in this encounter Progress Notes * Nino Lazaro MD - 03/10/2018 9:00 AM CST Medical Oncology / Hematoloy Clinic Note Visit Date: 03/10/2018 Requesting Provider: Primary Care Physician: João Marinelli 42 y.o. male Chief Complaint: The patient was referred for my opinion recommendations regarding further evaluation and managementof his thalassemia. 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 06/02/17--He was referred to me on 3/14/18 with a history of thalassemia minor and [...] ideas. The patient is not nervous/anxious. Objective Vitals: Vitals BP 140/85 (BP Location: Right arm) Pulse 73 Temp 36.9 ??C (98.5 ??F) (Oral) Resp 18 Ht 172.7 cm (5' 8 ) Wt 109.8 kg (242 lb) SpO2 99% BMI 36.80 kg/m?? Physical Exam: Physical Exam Constitutional: He is oriented to [...] hour(s)) CBC with auto differential Collection Time: 03/10/18 8:34 AM Result Value Ref Range WBC 11.0 (H) 3.4 - 10.8 x10E3/uL RBC 7.35 (HH) 4.14 - 5.80 x10E6/uL Hgb 14.2 13.0 - 17.7 g/dL Hct 42.0 37.5 - 51.0 % MCV 57 (L) 79 - 97 fL MCH 19.3 (L) 26.6 - 33.0 pg MCHC 33.8 31.5 - 35.7 g/dL Rdw 20.6 (H) 12.3 - 15.4 % Platelets 783 (H) 150 - 379 x10E3/uL Neutrophils 59 Not Estab. % Lymphs 32 Not Estab. % Monocytes 6 Not Estab. % Eosinophils 3 Not Estab. % Basophils 0 Not Estab. % Neutrophil abs 6.5 1.4 - 7.0 x10E3/uL Lymphs (Absolute) 3.5 (H) 0.7 - 3.1 x10E3/uL Monocyte abs 0.7 0.1 - 0.9 x10E3/uL Eosinophils, abs 0.3 0.0 - 0.4 x10E3/uL Basophils, abs 0.0 0.0 - 0.2 x10E3/uL No results found. Patient Active Problem List Diagnosis Date Noted ??? Thalassemia 04/20/2017 Priority: High ??? Thrombocytosis ([facility]) 03/08/2017 Priority: Medium Assessment: 1. History of mild anemia with [...] appear to have any acute inflammatory state of the nature such that his platelet count should be [...] 5. I will see him again in 6 months unless some other development occurs. --03/10/2018; Nino Lazaro MD SCIENCE TECHNICIAN documented in this encounter Miscellaneous Notes * Addendum Note - Mayur Milian RN - 03/10/2018 9:00 AM CSTAddended by: MAYUR MILIAN on: 09/06/2018 04:05 PM Modules accepted: Orders * Addendum Note - Mauyr Milian RN - 03/10/2018 9:00 AM CSTAddended by: MAYUR MILIAN on: 09/06/2018 04:05 PM Modules accepted: Orders documented in this encounter Plan of Treatment Not on file documented as of this encounter Procedures Procedure Name Priority Date/Time Associated Diagnosis Comments CBC WITH AUTO DIFFERENTIAL Routine 09/08/2018 10:21 AM CDT Thalassemia, unspecified type documented in this encounter Results * (ABNORMAL) CBC with auto differential (09/08/2018 10:21 AM CDT) WBC 9.4 3.4 - 10.8 x10E3/uL [facility] - 01 RBC 6.00(H) 4.14 - 5.80 x10E6/uL [facility] - 01 Hgb 11.8(L) 13.0 - 17.7 g/dL [facility] - 01 Hct 36.3(L) 37.5 - 51.0 % [facility] - 01 MCV 61(L) 79 - 97 fL [facility] - 01 MCH 19.7(L) 26.6 - 33.0 pg [facility] - 01 MCHC 32.5 31.5 - 35.7 g/dL [facility] - 01 Rdw 19.3(H) 12.3 - 15.4 % [facility] - 01 Platelets 638(H) 150 - 450 x10E3/uL [facility] - 01 Neutrophils pct 59 Not Estab. % [facility] - 01 Lymphs pct 30 Not Estab. % [facility] - 01 Monocytes pct 8 Not Estab. % [facility] - 01 Eosinophils pct 3 Not Estab. % [facility] - 01 Basophil pct 0 Not Estab. % [facility] - 01 Neutrophil abs 5.5 1.4 - 7.0 x10E3/uL [facility] - 01 Lymphs (Absolute) 2.9 0.7 - 3.1 x10E3/uL [facility] - 01 Monocyte abs 0.7 0.1 - 0.9 x10E3/uL [facility] - 01 Eosinophils, abs 0.3 0.0 - 0.4 x10E3/uL [facility] - 01 Basophils, abs 0.0 0.0 - 0.2 x10E3/uL [facility] - 01 Blood specimen (specimen) 09/08/2018 10:21 AM CDT 09/08/2018 Narrative [facility] - 09/08/2018 11:28 AM CDT Performed at: ?? - [facility] [address] [place], [place] ??[id number] Criminology Professor: Dima Laguna MD, Phone: ??[phone] Nino Lazaro MD LAB BLOOD ORDERABLES Final Re sult [facility] - 01 documented in this encounter Visit Diagnoses Diagnosis Thalassemia, unspecified type- Primary documented in this encounter Historical Medications * This list may reflect changes made after this encounter. Medication Sig Dispense Quantity Refills Last Filled Start D ate End Date cefdinir (OMNICEF) 300 mg capsule 03/03/2018 added in this encounter Orders Appointment Requests Count Last Ordered Date Fi rst Ordered Date ONCBCN CLINIC APPOINTMENT REQUEST 2 019 03/10/2018 ONCBCN LAB APPOINTMENT 1 09/08/2018 documented in this encounter Care Teams Director Talent Management Relationship Specialty Start Date End Date Ignacio Lew MD [address] [address] PCP - General 04/21/17 Nino Lazaro MD [address] [address] Medical Oncologist/Bariatric Surgeon Hematology and Oncology 07/27/17 documented as of this encounter
--- OUTSIDE RECORDS SUMMARY | 2024-02-08 02:12 | XMS_ITS | Encounter Summary ---
Author Organization [facility] Address [address] [place] [address] Phone Care Team Providers Care Director Of Staff Development Name Role Phone Ignacio Lew MD Primary Care Provider [phone] Nino Lazaro MD Unavailable [phone] Encounter Details Date Type Department Care Team (Late st Contact Info) Description 03/10/2018 8:30 AM GREEK PROFESSOR Lab [facility] Oncology [address] [place] [phone] Thalassemia, unspecified type Social History Tobacco Use Types Packs/Day Years Used Date Smoking Tobacco: Never Smokeless Tobacco: Never Sex and Gender Information Value Date Recorded Sex Assigned at Not on file Legal Sex Male 6:30 AM GREEK PROFESSOR Gender Identity Male 07/28/2017 7:38 AM CDT Sexual Orientation Not on file documented as of this encounter Plan of Treatment Not on file documented as of this encounter Visit Diagnoses Diagnosis Thalassemia, unspecified type documented in this encounter Orders Appointment Requests Count Last Ordered Date Fi rst Ordered Date ONCBCN LAB APPOINTMENT 1 03/10/2018 documented in this encounter Care Teams Director Of Staff Development Relationship Specialty Start Date End Date Ignacio Lew MD [address] [address] PCP - General 04/21/17 Nino Lazaro MD [address] [address] Medical Oncologist/Financial Sales Professional Hematology and Oncology 07/27/17 documented as of this encounter
--- OUTSIDE RECORDS SUMMARY | 2024-02-08 02:12 | XMS_ITS | Encounter Summary ---
Author Organization [facility] Address [address] [place] [address] Phone Care Team Providers Care Photographic Laboratory Technician Name Role Phone Ignacio Lew MD Primary Care Provider [phone] Nino Lazaro MD Unavailable [phone] Encounter Details Date Type Department Care Team (Late st Contact Info) Description 07/28/2017 7:45 AM CDT Lab [facility] Oncology [address] [place] [address] Essential (hemorrhagic) thrombocythemia (CMS/HCC); Thalassemia, unspecified type Social History Tobacco Use Types Packs/Day Years Used Date Smoking Tobacco: Never Smokeless Tobacco: Never Sex and Gender Information Value Date Recorded Sex Assigned at Not on file Legal Sex Male 6:30 AM CAMPAIGN MANAGEMENT SPECIALIST Gender Identity Male 07/28/2017 7:38 AM CDT Sexual Orientation Not on file documented as of this encounter Plan of Treatment Not on file documented as of this encounter Visit Diagnoses Diagnosis Essential (hemorrhagic) thrombocythemia (HCC) Thalassemia, unspecified type documented in this encounter Orders Appointment Requests Count Last Ordered Date Fi rst Ordered Date ONCBCN LAB APPOINTMENT 2 07/28/2017 documented in this encounter Care Teams Photographic Laboratory Technician Relationship Specialty Start Date End Date Ignacio Lew MD [address] [facility] [address] [place] [address] PCP - General 04/21/17 Nino Lazaro MD [address] [address] Medical Oncologist/Liquor Tester Hematology and Oncology 07/27/17 documented as of this encounter
--- OUTSIDE RECORDS SUMMARY | 2024-02-08 02:12 | XMS_ITS | Encounter Summary ---
Author Organization [facility] Address [address] [place] [address] Phone Care Team Providers Care Double Bottom Driver Name Role Phone Ignacio Lew MD Primary Care Provider [phone] Nino Lazaro MD Unavailable [phone] Reason for Visit * Reason Comments Follow-up Encounter Details Date Type Department Care Team (Late st Contact Info) Description 07/28/2017 8:15 AM CDT Office Visit [facility] Oncology [address] [facility] [place] [address] Nino Lazaro MD [address] [place] [address] Thalassemia, unspecified type Social History Tobacco Use Types Packs/Day Years Used Date Smoking Tobacco: Never Smokeless Tobacco: Never Sex and Gender Information Value Date Recorded Sex Assigned at Not on file Legal Sex Male 6:30 AM COTTON CHOPPER Gender Identity Male 07/28/2017 7:38 AM CDT Sexual Orientation Not on file documented as of this encounter Last Filed Vital Signs Vital Sign Reading Time Taken Comments Blood Pressure 136/80 07/28/2017 8:18 AM CDT Pulse 65 07/28/2017 8:18 AM CDT Temperature - - Respiratory Rate - - Oxygen Saturation - - Inhaled Oxygen Concentration - - Weight 108.4 kg (239 lb) 07/28/2017 8:18 AM CDT Height 172.7 cm (5' 8 ) 07/28/2017 8:18 AM CDT Body Mass Index 36.34 07/28/2017 8:18 AM CDT documented in this encounter Ordered Prescriptions Prescription Sig Dispense Quantity Refills Last Filled Start Date End Date aspirin 81 mg tablet Take 1 tablet (81 mg total) by mouth daily. 30 tablet 11 07/28/2017 09/21/2018 documented in this encounter Progress Notes * Nino Lazaro MD - 07/28/2017 8:15 AM CDT Medical Oncology / Hematoloy Clinic Note Visit Date: 07/28/2017 Requesting Provider: Primary Care Physician: João Marinelli 41 y.o. male Chief Complaint: The patient was referred for my opinion recommendations regarding further evaluation and managementof his thalassemia. 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 07/28/2017--The patient returns today for reassessment and further recommendations regarding furtherevaluation and management with no new complaints. Review of Systems: [...] The patient is not nervous/anxious. Objective Vitals: Vitals: 07/28/17 0818 BP: 136/80 Pulse: 65 Physical Exam: Physical Exam Constitutional: He is oriented to person, place, and time. He appears well- developed and well-nourished. No distress. HENT: Head: Normocephalic and atraumatic. Right Ear: External ear normal. Left Ear: External ear normal. Nose: Nose normal. Mouth/Throat: Oropharynx is clear and moist. Eyes: Conjunctivae and EOM are normal. Pupils are equal, round, and reactive to light. No scleral icterus. Neck: Normal range of [...] hour(s)) CBC with auto differential Collection Time: 07/28/17 7:57 AM Result Value Ref Range WBC 10.2 3.4 - 10.8 x10E3/uL RBC 5.66 4.14 - 5.80 x10E6/uL Hgb 11.7 (L) 13.0 - 17.7 g/dL Hct 35.0 (L) 37.5 - 51.0 % MCV 62 (L) 79 - 97 fL MCH 20.6 (L) 26.6 - 33.0 pg MCHC 33.4 31.5 - 35.7 g/dL Rdw 15.6 (H) 12.3 - 15.4 % Platelets 713 (H) 150 - 379 x10E3/uL Neutrophils 60 Not Estab. % Lymphs 30 Not Estab. % Monocytes 7 Not Estab. % Eosinophils 3 Not Estab. % Basophils 0 Not Estab. % Neutrophils, abs 6.2 1.4 - 7.0 x10E3/uL Lymphs (Absolute) 3.0 0.7 - 3.1 x10E3/uL Monocytes, abs 0.7 0.1 - 0.9 x10E3/uL Eosinophils, abs 0.3 0.0 - 0.4 x10E3/uL Basophils, abs 0.0 0.0 - 0.2 x10E3/uL No results found. Patient Active Problem List Diagnosis Date Noted ??? Thalassemia 04/20/2017 Assessment: 1. History of mild anemia with a CBC parameters supporting thalassemia minor (trait). Thrombocytosis etiology uncertain. 2. Thalassemia minor is not usually associated with thrombocytosis. I don't believe that I have ever seen that --certainly not to this degree., 3. At his his age I think we need to be careful to not overlook the possibility of essential thrombocytosis or other myeloproliferative disorder., 4. However fortunately his NAIMA 2 gene analysis is negative. 5. He does not appear to have any acute inflammatory state of the nature such that his platelet count should be this high. 6. His history, physical exam laboratory studies did [...] 6 months unless some other development occurs. --07/28/2017; Nino Lazaro MD documented in this encounter Miscellaneous Notes * Addendum Note - Mayur Milian RN - 07/28/2017 8:15 AM CDTAddended by: MAYUR MILIAN on: 02/14/2018 12:16 PM Modules accepted: Orders ON CHOPPER * Addendum Note - Mayur Milian RN - 07/28/2017 8:15 AM CDTAddended by: MAYUR MILIAN on: 03/03/2018 11:30 AM Modules accepted: Orders ON CHOPPER documented in this encounter Plan of Treatment Not on file documented as of this encounter Procedures Procedure Name Priority Date/Time Associated Diagnosis Comments CBC WITH AUTO DIFFERENTIAL Routine 03/10/2018 8:34 AM COTTON CHOPPER Thalassemia, unspecified type documented in this encounter Results * (ABNORMAL) CBC with auto differential (03/10/2018 8:34 AM COTTON CHOPPER) WBC 11.0(H) 3.4 - 10.8 x10E3/uL [facility] - 01 RBC 7.35(HH) 4.14 - 5.80 x10E6/uL [facility] - 01 Comment:Results verified b y repeat testing Hgb 14.2 13.0 - 17.7 g/dL [facility] - 01 Hct 42.0 37.5 - 51.0 % [facility] - 01 MCV 57(L) 79 - 97 fL [facility] - 01 MCH 19.3(L) 26.6 - 33.0 pg [facility] - 01 MCHC 33.8 31.5 - 35.7 g/dL [facility] - 01 Rdw 20.6(H) 12.3 - 15.4 % [facility] - 01 Platelets 783(H) 150 - 379 x10E3/uL [facility] - 01 Neutrophils pct 59 Not Estab. % [facility] - 01 Lymphs pct 32 Not Estab. % [facility] - 01 Monocytes pct 6 Not Estab. % [facility] - 01 Eosinophils pct 3 Not Estab. % [facility] - 01 Basophil pct 0 Not Estab. % [facility] - 01 Neutrophil abs 6.5 1.4 - 7.0 x10E3/uL [facility] - 01 Lymphs (Absolute) 3.5(H) 0.7 - 3.1 x10E3/uL [facility] - 01 Monocyte abs 0.7 0.1 - 0.9 x10E3/uL [facility] - 01 Eosinophils, abs 0.3 0.0 - 0.4 x10E3/uL [facility] - 01 Basophils, abs 0.0 0.0 - 0.2 x10E3/uL [facility] - 01 Blood specimen (specimen) 03/10/2018 8:34 AM COTTON CHOPPER 03/10/2018 Narrative [facility] - 03/10/2018 9:45 AM COTTON CHOPPER Performed at: ??01 - [facility] [address], [place] ??[id number] Field Services Analyst: Dima Laguna MD, Phone: ??[phone] Nino Lazaro MD LAB BLOOD ORDERABLES Final Re sult [facility] - documented in this encounter Visit Diagnoses Diagnosis Thalassemia, unspecified type documented in this encounter Orders Appointment Requests Count Last Ordered Date Fi rst Ordered Date ONCBCN CLINIC APPOINTMENT REQUEST 2 019 07/28/2017 ONCBCN LAB APPOINTMENT 1 03/10/2018 documented in this encounter Care Teams Double Bottom Driver Relationship Specialty Start Date End Date Ignacio Lew MD [address] [employer] [address] [place] [address] PCP - General 04/21/17 Nino Lazaro MD [address] [employer] [address] [place] [address] Medical Oncologist/Train Dispatcher Hematology and Oncology 07/27/17 documented as of this encounter
--- OUTSIDE RECORDS SUMMARY | 2024-02-08 02:12 | XMS_ITS | Encounter Summary ---
Author Organization [facility] Address [address] [place] [address] Phone Care Team Providers Care Scientific Diver Name Role Phone Ignacio Lew MD Primary Care Provider [phone] Encounter Details Date Type Department Care Team (Late st Contact Info) Description 07/26/2017 Orders Only [facility] Oncology [address] [facility] [place] [address] Carmel Morgan RN Thalassemia, unspecified type (Primary Dx) Social History Tobacco Use Types Packs/Day Years Used Date Smoking Tobacco: Never Assessed Sex and Gender Information Value Date Recorded Sex Assigned at Not on file Legal Sex Male 6:30 AM CUSTOM PROTECTION OFFICER Gender Identity Male 07/28/2017 7:38 AM CDT Sexual Orientation Not on file documented as of this encounter Plan of Treatment Not on file documented as of this encounter Procedures Procedure Name Priority Date/Time Associated Diagnosis Comments CBC WITH AUTO DIFFERENTIAL Routine 07/28/2017 7:57 AM CDT Thalassemia, unspecified type documented in this encounter Results * (ABNORMAL) CBC with auto differential (07/28/2017 7:57 AM CDT) WBC 10.2 3.4 - 10.8 x10E3/uL [facility] - 01 RBC 5.66 4.14 - 5.80 x10E6/uL [facility] - 01 Hgb 11.7(L) 13.0 - 17.7 g/dL [facility] - 01 Hct 35.0(L) 37.5 - 51.0 % [facility] - 01 MCV 62(L) 79 - 97 fL [facility] - 01 MCH 20.6(L) 26.6 - 33.0 pg [facility] - 01 MCHC 33.4 31.5 - 35.7 g/dL [facility] - 01 Rdw 15.6(H) 12.3 - 15.4 % [facility] - 01 Platelets 713(H) 150 - 379 x10E3/uL [facility] - 01 Neutrophils pct 60 Not Estab. % [facility] - 01 Lymphs pct 30 Not Estab. % [facility] - 01 Monocytes pct 7 Not Estab. % [facility] - 01 Eosinophils pct 3 Not Estab. % [facility] - 01 Basophil pct 0 Not Estab. % [facility] - 01 Neutrophil abs 6.2 1.4 - 7.0 x10E3/uL [facility] - 01 Lymphs (Absolute) 3.0 0.7 - 3.1 x10E3/uL [facility] - 01 Monocyte abs 0.7 0.1 - 0.9 x10E3/uL [facility] - 01 Eosinophils, abs 0.3 0.0 - 0.4 x10E3/uL [facility] - 01 Basophils, abs 0.0 0.0 - 0.2 x10E3/uL [facility] - 01 Blood specimen (specimen) 07/28/2017 7:57 AM CDT 07/28/2017 Narrative [facility] - 07/28/2017 9:07 AM CDT Performed at: ??01 - [facility] [address] [place], [place] [id number] Admission Nurse Coordinator: Dima Laguna MD, Phone: ??[phone] Nino Lazaro MD LAB BLOOD ORDERABLES Final Re sult [facility] documented in this encounter Visit Diagnoses Diagnosis Thalassemia, unspecified type- Primary documented in this encounter Orders Appointment Requests Count Last Ordered Date Fi rst Ordered Date ONCBCN LAB APPOINTMENT 1 07/28/2017 documented in this encounter Care Teams Scientific Diver Relationship Specialty Start Date End Date Ignacio Lew MD [address] [employer] [address] PCP - General 04/21/17 documented as of this encounter
--- OUTSIDE RECORDS SUMMARY | 2024-02-08 02:12 | XMS_ITS | Encounter Summary ---
Author Organization [facility] Address [address] [place] [address] Phone Care Team Providers Care Peripheral Vascular Tech Name Role Phone Ignacio Lew MD Primary Care Provider [phone] Encounter Details Date Type Department Care Team (Late st Contact Info) Description 07/02/2017 Orders Only [facility] Oncology [address] [facility] [place] [phone] Modesta Walters, ROLL RECLAIMER Essential (hemorrhagic) thrombocythemia (CMS/HCC) (Primary Dx) Social History Tobacco Use Types Packs/Day Years Used Date Smoking Tobacco: Never Assessed Sex and Gender Information Value Date Recorded Sex Assigned at Not on file Legal Sex Male 6:30 AM INSTITUTIONAL RESEARCH DIRECTOR Gender Identity Male 07/28/2017 7:38 AM CDT Sexual Orientation Not on file documented as of this encounter Plan of Treatment Scheduled Orders Name Type Priority Associated Diagnoses Orde r Schedule CBC with auto differential Lab Routine Essential (hemorrhagic) thrombocythemia (CMS/HCC) Expected: 07/28/2017, Expires: 07/02/2018 documented as of this encounter Visit Diagnoses Diagnosis Essential (hemorrhagic) thrombocythemia (HCC)- Primary documented in this encounter Orders Appointment Requests Count Last Ordered Date Fi rst Ordered Date ONCBCN LAB APPOINTMENT 1 07/28/2017 documented in this encounter Care Teams Peripheral Vascular Tech Relationship Specialty Start Date End Date Ignacio Lew MD [address] [facility] [address] [place] [address] PCP - General 04/21/17 documented as of this encounter
--- OUTSIDE RECORDS SUMMARY | 2024-02-08 02:12 | XMS_ITS | Encounter Summary ---
Author Organization [facility] Address [address] [place] [address] Phone Care Team Providers Care Tin Roofer Name Role Phone Ignacio Lew MD Primary Care Provider [phone] Encounter Details Date Type Department Care Team (Late st Contact Info) Description 07/08/2017 Orders Only [facility] Oncology [address] [facility] [place] [phone] Isabel Barr, HORACE Thalassemia, unspecified type (Primary Dx) Social History Tobacco Use Types Packs/Day Years Used Date Smoking Tobacco: Never Assessed Sex and Gender Information Value Date Recorded Sex Assigned at Not on file Legal Sex Male 6:30 AM TOMATO GRADER Gender Identity Male 07/28/2017 7:38 AM CDT Sexual Orientation Not on file documented as of this encounter Plan of Treatment Not on file documented as of this encounter Visit Diagnoses Diagnosis Thalassemia, unspecified type- Primary documented in this encounter Orders Appointment Requests Count Last Ordered Date Fi rst Ordered Date ONCBCN CLINIC APPOINTMENT REQUEST 1 018 documented in this encounter Care Teams Tin Roofer Relationship Specialty Start Date End Date Ignacio Lew MD [address] [address] PCP - General 04/21/17 documented as of this encounter
--- OUTSIDE RECORDS SUMMARY | 2024-02-08 02:12 | XMS_ITS | Encounter Summary ---
Author Organization [facility] Facility Care Team Providers Care Polisher Eyeglass Frames Name Role Phone Unavailable Primary Care Provider Unavailabl e Encounter Details Date Type Department Care Team (Late st Contact Info) Description 11/03/2011 12:53 PM CDT - 11/03/2011 11:59 PM CDT Hospital [facility] Yu Biggs MD [address] [place] [address] [place] [id number] Family history of other condition Social History Tobacco Use Types Packs/Day Years Used Date Smoking Tobacco: Never Assessed Sex and Gender Information Value Date Recorded Sex Assigned at Not on file Legal Sex Male 6:30 AM SALES ACCOUNT LEADER Gender Identity Male 07/28/2017 7:38 AM CDT Sexual Orientation Not on file documented as of this encounter Plan of Treatment Not on file documented as of this encounter Visit Diagnoses Diagnosis Family history of other condition documented in this encounter
== END 2024-02-01 10:40 | disposition home or self-care (01) ==
PROVIDERS: PCP Family Medicine; Visit Provider Internal Medicine Gastroenterology
PROC: 0DJD8ZZ Inspection of Lower Intestinal Tract, Via Natural or Artificial Opening Endoscopic (ICD-10-PCS; CPT 45378; principal; 2024-02-01 10:30)
DX: Z12.11 Encounter for screening for malignant neoplasm of colon (principal); I10 Essential (primary) hypertension; N28.9 Disorder of kidney and ureter, unspecified; D72.829 Elevated white blood cell count, unspecified; D56.3 Thalassemia minor; E66.9 Obesity, unspecified; Z68.35 Body mass index [BMI] 35.0-35.9, adult; Z98.890 Other specified postprocedural states; Z87.442 Personal history of urinary calculi; Z80.1 Family history of malignant neoplasm of trachea, bronchus and lung; Z82.49 Family history of ischemic heart disease and other diseases of the circulatory system
CPT/HCPCS: 45378; J2704; J7120

== ENCOUNTER 2024-09-11 12:31 | Outpatient (CLI) | payer BC, SELFPAY ==
--- OUTSIDE RECORDS SUMMARY | 2024-09-11 12:35 | XMS_ITS | Clinical Summary ---
Author Organization [facility] Address [address] [place] [address] Care Team Providers Care Tankroom Tender Name Role Phone Ignacio Lew MD Primary Care Provider [phone] Nino Lazaro MD Unavailable [phone] Allergies No known active allergies Medications cefdinir (OMNICEF) 300 mg capsule 9 Active aspirin 81 mg enteric coated tablet TAKE ONE TABLET DAILY 30 tablet 11 9 Active Additional Information Patient not taking.Reported on 02/17/2021 Active Problems Problem Noted Date Diagnosed Date Thalassemia 04/20/2017 Thrombocytosis 03/08/2017 Immunizations Immunization Administration Dates Next Due Influenza, Unspecified 04/21/2017 Medical History Medical History Date Comments Thrombocytosis 07/31/2017 Social History Tobacco Use Types Packs/Day Years Used Date Smoking Tobacco: Never Smokeless Tobacco: Never Personal Safety Answer Date Recorded Getting School Help Needed Not on file 04/03 Sex and Gender Information Value Date Recorded Sex Assigned at Not on file Legal Sex Male 6:30 AM ETHNOARCHAEOLOGIST Gender Identity Male 07/28/2017 7:38 AM CDT Sexual Orientation Not on file Obstetrics History Last Filed Vital Signs Vital Sign Reading Time Taken Comments Blood Pressure 133/99 02/17/2021 6:18 PM ETHNOARCHAEOLOGIST Pulse 93 02/17/2021 6:18 PM ETHNOARCHAEOLOGIST Temperature 36.6 C (97.9 F) 02/17/2021 6:18 PM ETHNOARCHAEOLOGIST Respiratory Rate 16 02/17/2021 6:18 PM ETHNOARCHAEOLOGIST Oxygen Saturation 99% 02/17/2021 6:18 PM ETHNOARCHAEOLOGIST Inhaled Oxygen Concentration - - Weight 113.4 kg (250 lb) 02/17/2021 6:18 PM ETHNOARCHAEOLOGIST Height 175.3 cm (5' 9) 02/17/2021 6:18 PM ETHNOARCHAEOLOGIST Body Mass Index 36.92 02/17/2021 6:18 PM ETHNOARCHAEOLOGIST Plan of Treatment Not on file Insurance [employer] [facility] [employer] [place] [place] Care Teams Tankroom Tender Relationship Specialty Start Date End Date Ignacio Lew MD [address] [address] PCP - General 04/21/17 Nino Lazaro MD [address] [place] [address] Medical Oncologist/Cosmetology Instructor Hematology and Oncology 07/27/17
--- OUTSIDE RECORDS SUMMARY | 2024-09-11 12:35 | XMS_ITS | Referral Summary ---
Author Organization [facility] Address [address] [place] [address] Care Team Providers Care Fabrication Inspector Name Role Phone Ignacio Lew MD Primary Care Provider [phone] Nino Lazaro MD Unavailable [phone] Allergies No known active allergies Medications [...] on file Legal Sex Male 6:30 AM DISPLAY CARD WRITER Gender Identity Male 07/28/2017 7:38 AM CDT Sexual Orientation Not on file Last Filed Vital Signs Vital Sign Reading Time Taken Comments Blood Pressure 133/99 02/17/2021 6:18 PM DISPLAY CARD WRITER Pulse 93 02/17/2021 6:18 PM DISPLAY CARD WRITER Temperature 36.6 C (97.9 F) 02/17/2021 6:18 PM DISPLAY CARD WRITER Respiratory Rate 16 02/17/2021 6:18 PM DISPLAY CARD WRITER Oxygen Saturation 99% 02/17/2021 6:18 PM DISPLAY CARD WRITER Inhaled Oxygen Concentration - - Weight 113.4 kg (250 lb) 02/17/2021 6:18 PM DISPLAY CARD WRITER Height 175.3 cm (5' 9) 02/17/2021 6:18 PM DISPLAY CARD WRITER Body Mass Index 36.92 02/17/2021 6:18 PM DISPLAY CARD WRITER Plan of Treatment Not on file Insurance [employer] [facility] [employer] [place] Care Teams Fabrication Inspector Relationship Specialty Start Date End Date Ignacio Lew MD [address] [address] PCP - General 04/21/17 Nino Lazaro MD [id number] [address] Medical Oncologist/Food And Beverage Assistant Hematology and Oncology 07/27/17
--- OUTSIDE RECORDS SUMMARY | 2024-09-11 12:35 | XMS_ITS | Clinical Summary ---
Author Organization [facility] Address [facility] [place] [address] Care Team Providers Care Template Fitter Name Role Phone Unavailable Primary Care Provider Unavailabl e Social History Tobacco Use Types Packs/Day Years Used Date Smoking Tobacco: Never Assessed Sex and Gender Information Value Date Recorded Sex Assigned at Not on file Legal Sex Male 10:23 PM DISTRICT MANAGER PRIMARY CARE SALES Gender Identity Not on file Sexual Orientation Not on file Plan of Treatment Health Maintenance Due Date Last Done Comments Colorectal Cancer Screening Colonoscopy (10 Years) 1974 Annual Physical 1977 Hepatitis C 1992 DTaP, Tdap and Td Vaccines ( 1 - Tdap) 1993 Hepatitis B Vaccines (1 of 3 - 19+ 3-dose series) 1993 COVID-19 Vaccine (2023-2 5 season) 2023 Meningococcal B Vaccine Aged Out No l onger eligible based on patient's age to complete this topic Meningococcal Vaccine Aged Out No bessie grisel eligible based on patient's age to complete this topic Pneumococcal Vaccine: Pediat rics (0 to 5 Years) and At-Risk Patients (6 to 49 Years) Aged Out No longer eligible b ased on patient's age to complete this topic RSV Immunizations Under 20 Months Aged Out No longer eligible based on patient's age to complete this topic
[2024-09-11 13:15] LABS: Albumin Level 4.4 g/dL (3.5-5.1); Anion Gap 10 mmol/L (4-12); Blood Urea Nitrogen 23 mg/dL (9-20); Calcium 9.3 mg/dL (8.4-10.2); Carbon Dioxide 22 mmol/L (22-30); Chloride 106 mmol/L (98-107); Estimated Glomerular Filt Rate 53; Glucose 90 mg/dL (65-110); Potassium 4.1 mmol/L (3.4-5.0); Sodium 138 mmol/L (137-145)
[2024-09-11 13:24] LABS: Total Protein Urine Random 9 mg/dL; Ur Ttl Prot Creatinine Ratio 0.20 mg/mg (0-0.20)
[2024-09-11 13:43] LABS: Parathyroid Intact 36.3 pg/mL (14.5-75.2)
== END 2024-09-11 12:32 | disposition home or self-care (01) ==
LOC: ANHLAB 12:33
PROVIDERS: PCP Family Medicine; Visit Provider Internal Medicine Nephrology
DX: I12.9 Hypertensive chronic kidney disease with stage 1 through stage 4 chronic kidney disease, or unspecified chronic kidney disease (principal); N18.31 Chronic kidney disease, stage 3a; N25.81 Secondary hyperparathyroidism of renal origin; E55.9 Vitamin D deficiency, unspecified
CPT/HCPCS: 36415; 80069; 82306; 82570; 83970; 84156

== ENCOUNTER 2024-10-02 11:50 | Outpatient (CLI) | payer BC, SELFPAY ==
[2024-10-02 12:15] LABS: Hematocrit 38.9 % (42.0-52.0); Hemoglobin 11.8 g/dL (14.0-18.0); Immature Granulocyte Percent A 0.7 % (0-0.5); Lymphocytes Absolute Auto 2.88 K/mm3 (0.9-3.2); Mean Corpuscular HGB Conc 30.3 g/dl (32-36); Mean Corpuscular Hemoglobin 19.3 pg (26-34); Mean Corpuscular Volume 63.7 fl (80-100); Nucleated Red Blood Cells Absolute Auto 0.000 K/mm3 (0.0-0.012); Nucleated Red Blood Cells Perc 0.0 % (0.0-0.2); Platelet Count Result 522 k/mm3 (150-375); Red Blood Count 6.11 M/mm3 (4.6-6.20); White Blood Count 9.8 K/mm3 (4.5-10.0)
--- OUTSIDE RECORDS SUMMARY | 2024-10-02 12:19 | XMS_ITS | Clinical Summary ---
Author Organization [facility] Address [address] [place] [address] Care Team Providers Care Transmission Technician Name Role Phone Ignacio Lew MD Primary Care Provider [phone] Nino Lazaro MD Unavailable [phone] Allergies No known active allergies Medications [...] on file Legal Sex Male 6:30 AM ORACLE DATABASE ARCHITECT Gender Identity Male 07/28/2017 7:38 AM CDT Sexual Orientation Not on file Obstetrics History Last Filed Vital Signs Vital Sign Reading Time Taken Comments Blood Pressure 133/99 02/17/2021 6:18 PM ORACLE DATABASE ARCHITECT Pulse 93 02/17/2021 6:18 PM ORACLE DATABASE ARCHITECT Temperature 36.6 C (97.9 F) 02/17/2021 6:18 PM ORACLE DATABASE ARCHITECT Respiratory Rate 16 02/17/2021 6:18 PM ORACLE DATABASE ARCHITECT Oxygen Saturation 99% 02/17/2021 6:18 PM ORACLE DATABASE ARCHITECT Inhaled Oxygen Concentration - - Weight 113.4 kg (250 lb) 02/17/2021 6:18 PM ORACLE DATABASE ARCHITECT Height 175.3 cm (5' 9) 02/17/2021 6:18 PM ORACLE DATABASE ARCHITECT Body Mass Index 36.92 02/17/2021 6:18 PM ORACLE DATABASE ARCHITECT Plan of Treatment Not on file Insurance [employer] [facility] [employer] [place] Care Teams Transmission Technician Relationship Specialty Start Date End Date Ignacio Lew MD [address] [address] PCP - General 04/21/17 Nino Lazaro MD [address] [place] [address] Medical Oncologist/Manager Wellness Hematology and Oncology 07/27/17
--- OUTSIDE RECORDS SUMMARY | 2024-10-02 12:19 | XMS_ITS | Clinical Summary ---
Author Organization [facility] Address [facility] [place] [address] Care Team Providers Care Machine Cloth Trimmer Name Role Phone Unavailable Primary Care Provider Unavailabl e Social History Tobacco Use Types Packs/Day Years Used Date Smoking Tobacco: Never Assessed Sex and Gender Information Value Date Recorded Sex Assigned at Not on file Legal Sex Male 10:23 PM REPEATER CHIEF Gender Identity Not on file Sexual Orientation [...]
[2024-10-02 12:35] LABS: Alanine Aminotransferase 27 U/L (6-50); Albumin Level 4.5 g/dL (3.5-5.1); Alkaline Phosphatase 75 U/L (38-126); Anion Gap 8 mmol/L (4-12); Aspartate Amino Transferase 32 U/L (17-59); Bilirubin,Total 0.7 mg/dL (0.2-1.3); Blood Urea Nitrogen 21 mg/dL (9-20); Calcium 8.9 mg/dL (8.4-10.2); Carbon Dioxide 26 mmol/L (22-30); Chloride 103 mmol/L (98-107); Cholesterol 154 mg/dL (0-200); Estimated Glomerular Filt Rate 52; Glucose 87 mg/dL (65-110); HDL Direct 43 mg/dL; Potassium 4.2 mmol/L (3.4-5.0); Sodium 137 mmol/L (137-145); Total Protein 7.0 g/dL (6.3-8.2); Triglycerides 124 mg/dL (<150)
[2024-10-02 12:36] LABS: Giant Platelets Present
[2024-10-02 12:37] LABS: Anisocytosis 1+; Ovalocytes 1+; Tear Drop Cells Occasional
[2024-10-02 12:38] LABS: Hypochromasia 1+; Schistocytes None Seen
[2024-10-02 12:53] LABS: Hemoglobin A1C 5.0 % (<5.7)
[2024-10-02 13:06] LABS: Thyroid Stimulating Hormone Reflex 1.960 uIU/mL (0.465-4.68)
== END 2024-10-02 11:51 | disposition home or self-care (01) ==
PROVIDERS: PCP Family Medicine
DX: Z13.1 Encounter for screening for diabetes mellitus (principal); Z13.220 Encounter for screening for lipoid disorders; E66.9 Obesity, unspecified; I12.9 Hypertensive chronic kidney disease with stage 1 through stage 4 chronic kidney disease, or unspecified chronic kidney disease; N18.9 Chronic kidney disease, unspecified
CPT/HCPCS: 36415; 80053; 80061; 83036; 83525; 84443; 85025

== ENCOUNTER 2024-12-22 10:20 | Outpatient (CLI) | payer BC, SELFPAY ==
[2024-12-22 10:40] LABS: Hematocrit 35.9 % (42.0-52.0); Hemoglobin 11.1 g/dL (14.0-18.0); Immature Granulocyte Percent A 0.3 % (0-0.5); Lymphocytes Absolute Auto 2.51 K/mm3 (0.9-3.2); Mean Corpuscular HGB Conc 30.9 g/dl (32-36); Mean Corpuscular Hemoglobin 19.6 pg (26-34); Mean Corpuscular Volume 63.3 fl (80-100); Nucleated Red Blood Cells Absolute Auto 0.000 K/mm3 (0.0-0.012); Nucleated Red Blood Cells Perc 0.0 % (0.0-0.2); Platelet Count Result 634 k/mm3 (150-375); Red Blood Count 5.67 M/mm3 (4.6-6.20); White Blood Count 9.4 K/mm3 (4.5-10.0)
[2024-12-22 10:41] LABS: Add Urine Microscopic? NO; Appearance Urine Clear (Clear); Glucose Urine UA 3+ mg/dL (Negative); Leukocyte Esterase Ur Negative LEU/UL (Negative); Nitrate Urine Negative (Negative); Specific Grav Ur 1.020 (1.001-1.035)
[2024-12-22 11:04] LABS: Alanine Aminotransferase 20 U/L (6-50); Albumin Level 4.3 g/dL (3.5-5.1); Alkaline Phosphatase 61 U/L (38-126); Anion Gap 7 mmol/L (4-12); Aspartate Amino Transferase 42 U/L (17-59); Bilirubin,Total 0.7 mg/dL (0.2-1.3); Blood Urea Nitrogen 20 mg/dL (9-20); Calcium 9.0 mg/dL (8.4-10.2); Carbon Dioxide 28 mmol/L (22-30); Chloride 102 mmol/L (98-107); Cholesterol 134 mg/dL (0-200); Estimated Glomerular Filt Rate 51; Glucose 87 mg/dL (65-110); HDL Direct 41 mg/dL; Potassium 4.3 mmol/L (3.4-5.0); Sodium 137 mmol/L (137-145); Total Protein 6.6 g/dL (6.3-8.2); Triglycerides 64 mg/dL (<150)
[2024-12-22 11:16] LABS: Microcytosis 2+ (NORMAL)
[2024-12-22 11:17] LABS: Ovalocytes 1+; Schistocytes Rare
[2024-12-22 11:19] LABS: Hypochromasia 1+
[2024-12-22 11:27] LABS: Acanthocytes 1+; Tear Drop Cells 1+
[2024-12-22 11:32] LABS: Target Cells Occasional
[2024-12-22 11:33] LABS: Basophilic Stippling Occasional; Crenated RBC 1+
[2024-12-22 11:40] LABS: Prostate Specific Antigen 0.8 ng/mL (< OR = 4.0); Thyroid Stimulating Hormone 1.650 uIU/mL (0.465-4.680)
== END 2024-12-22 10:21 | disposition home or self-care (01) ==
LOC: ANHLAB 10:21
PROVIDERS: PCP Family Medicine; Visit Provider Family Medicine
DX: E78.2 Mixed hyperlipidemia (principal); Z12.5 Encounter for screening for malignant neoplasm of prostate; E66.9 Obesity, unspecified; D56.3 Thalassemia minor; I12.9 Hypertensive chronic kidney disease with stage 1 through stage 4 chronic kidney disease, or unspecified chronic kidney disease; N18.9 Chronic kidney disease, unspecified
CPT/HCPCS: 36415; 80053; 80061; 81003; 84153; 84443; 85025; G0103